=== PATIENT | female | born 1940 | race Caucasian/White ===

== ENCOUNTER 2021-12-23 09:45 | Outpatient (RCR) | payer MEDICARE, BC, SELFPAY ==
[2021-10-05 15:58] VITALS: PULSE 69
== END 2021-12-23 14:26 | disposition home or self-care (01) ==
LOC: ANHCPREHAB 09:45
PROVIDERS: PCP Family Medicine; Visit Provider Internal Medicine Cardiovascular Disease
DX: I50.89 Other heart failure (principal); I25.2 Old myocardial infarction
CPT/HCPCS: 93798

== ENCOUNTER 2022-09-02 08:48 | Emergency (ER) | payer MEDICARE, BC, SELFPAY ==
--- NOTE | ~2022-09-02 | XR_ITS ---
EXAMINATION: XR chest 2V DATE: 09/02/2022 09:40 INDICATION: Atrial fibrillation and pacemaker placement TECHNIQUE: frontal view of the chest was obtained. COMPARISON: Chest radiograph dated 01/16/16 FINDINGS: Minimal streaky bibasilar atelectasis. No other airspace opacities, pulmonary edema, pleural effusion or pneumothorax. Cardiomegaly. Single lead cardiac pacemaker with lead tip projecting over the right ventricle extending towards the right ventricular outflow tract. A prior large gas-filled hiatal her stephania is no longer appreciated. Correlate for interval hiatal hernia repair. Mild thoracic kyphosis wit h moderate spondylosis. IMPRESSION: 1. Tip of a single lead cardiac pacemaker extending towards the right ventricular outflow tract. 2. Minimal bibasilar atelectasis. No other acute cardiopulmonary disease. 3. Prior large hiatal hernia no longer appreciated. Correlate for interval hernia repair. Reviewed, dictated and finalized at location [facility]. [facility] PROCESSING SPECIALIST IMPRESSION: 1. Tip of a single lead cardiac pacemaker extending towards the right ventricul ar outflow tract. 2. Minimal bibasilar atelectasis. No other acute cardiopulmonary disease. 3. Prior large hiatal hernia no longer appreciated. Correlate for interval phyllis ia repair.
[2022-09-02 08:58] VITALS: BP 147/82; PULSE 60; RESP 18; TEMP 36.8; O2SAT 100
--- NOTE | 2022-09-02 09:05 | ED.CHESTPAIN ---
HPI - Chest Pain General Chief Complaint: Chest Pain Stated Complaint: chest pain running under breast Time Seen by Provider: 09/02/22 09:30 Mode of arrival: ambulatory Limitations: no limitations History of Present Illness HPI narrative: 81 year old female with history of AFib and pacemaker presents with concern for chest pain. Reports this morning she rolled over to take off her CPAP machine when she felt a midsternal chest pain that was sharp and ?deep?, the pain lasted for about 30 minutes, toward the end of the 30 minutes the pain radiated under the right breast. She denies any shortness of breath, diaphoresis, nausea. She denies current pain. She denies any recent cough, upper respiratory infection range. She denies rash, redness, bruising. She denies any recent injury or fall. She reports pain is not exacerbated with deep breathing or coughing. MD complaint: chest pain Related Data Home Medications Medication Instructions Recorded Confirmed alprazolam 0.5 mg tablet 0.5 mg PO TID 10/05/21 10/05/21 amlodipine 2.5 mg tablet 2.5 mg PO DAILY 10/05/21 10/05/21 apixaban 5 mg tablet (Eliquis) 5 mg PO BID 10/05/21 10/05/21 carvedilol 6.25 mg tablet 6.25 mg PO BID 10/05/21 10/05/21 pantoprazole 40 mg tablet,delayed 40 mg PO QAM 10/05/21 10/05/21 release potassium chloride 20 mEq 20 meq PO DAILY 10/05/21 10/05/21 tablet,extended release(part/cryst) (Klor-Con M) furosemide 20 mg tablet 20 mg PO DIRECTED 09/02/22 09/02/22 hydrochlorothiazide 25 mg tablet 25 mg PO DAILY 09/02/22 09/02/22 Allergies Allergy/AdvReac Type Severity Reaction Status Date / Time codeine Allergy Mild Nausea and Verified 09/02/22 09:16 Vomiting gabapentin Allergy Nausea and Verified 09/02/22 09:16 Vomiting Review of Systems Review of Systems: CONSTITUTIONAL: Denies malaise, chills, sweats, or fever. EYES: Denies visual changes, redness, or discharge. ENT: Denies rhinorrhea, congestion, sinus pain, otalgia or sore throat. CARDIOVASCULAR: Denies current chest pain, palpitations, or edema. RESPIRATORY: Denies cough or dyspnea. GASTROINTESTINAL: Denies abdominal pain, nausea, vomiting SKIN: Denies rash or itching. MUSCULOSKELETAL: Denies back pain, joint pain, or myalgia. NEUROLOGIC: Denies numbness, weakness, or headache. All systems reviewed & are unremarkable except as noted in HPI and below PMFSH Family History Family History (Updated 10/05/21 @ 15:11 by Ayanna Franco RN) Mother Family history of coronary artery disease, Onset Age: 80 Family history of premature coronary heart disease Family history of elevated blood lipids Father Family history of kidney disease, Onset Age: 50 Family history of diabetes mellitus in first degree relative Patient's father is Hypertension Diabetes mellitus Grandparent Family history of lymphoma Sibling Family history of coronary artery disease Family history of elevated blood lipids Family history of premature coronary heart disease Pacemaker Social History Social History Smoking status: Never smoker Alcohol intake: current Comments At time of signature, agree with nursing past medical, surgical, social and family history. There is no relevant family history pertinent to the presenting complaint Exam Narrative: GENERAL: Well-appearing, well-nourished, and in no acute distress. HEAD: Normocephalic, atraumatic. EYES: PERRLA, sclera clear, and EOMI. No nystagmus. ENT: Nares clear, turbinates pink, no rhinorrhea or epistaxis. Mucous membranes moist. NECK: Supple. No lymphadenopathy. No jugular venous distension, thyromegaly, or carotid bruits. Carotids were easily palpable bilaterally. CHEST: No respiratory distress. Clear to auscultation. No bony deformities, no asymmetry. Speaks in full sentences. Mild tenderness with sternal rub HEART: Regular rate and rhythm. No murmur heard. Normal peripheral pulses. ABDOMEN: Soft, nontender, nondist
--- NOTE | 2022-09-02 09:12 | ECG_ITS ---
Measurements Intervals [place] Rate: 60 P: [place]: 0 QRS: 27 QRSD: 144 T: 73 QT: 463 QTc: 463 Interpretive Statements ELECTRONIC VENTRICULAR PACEMAKER BASELINE ARTIFACT- I, II, III, AVR, AVL, AVF, V1 NO FURTHER INTERPRETATION IS POSSIBLE ATYPICAL ECG NO PREVIOUS ECG AVAILABLE FOR COMPARISON Electronically Signed On 09-02-2022 10:24:18 [employer] by Keagan Bray D.O.
== END 2022-09-02 10:07 | disposition left against medical advice (07) ==
PROVIDERS: Emergency Provider Nurse Practitioner; PCP Family Medicine
DX: R07.9 Chest pain, unspecified (principal); I48.91 Unspecified atrial fibrillation; Z95.0 Presence of cardiac pacemaker; I11.0 Hypertensive heart disease with heart failure; I50.9 Heart failure, unspecified; E78.00 Pure hypercholesterolemia, unspecified; G47.30 Sleep apnea, unspecified; M19.90 Unspecified osteoarthritis, unspecified site; F41.9 Anxiety disorder, unspecified
CPT/HCPCS: 71046; 93005; 99213; G0463

== ENCOUNTER 2023-08-30 19:43 | Emergency (ER) | payer MEDICARE, BC, SELFPAY ==
--- NOTE | 2023-08-30 19:48 | ED.GENADULT ---
HPI - General Adult General Chief complaint: Unspecified Stated complaint: Blood Pressure History of Present Illness HPI narrative: 82-year-old female with history of AFib, hypertension, mi presents today with complaint of shortness of breath today. Check blood pressure at home 30 minutes ago and was elevated 180/100. Denies chest pain but does report palpitations. All systems reviewed and negative except as noted above. Related Data Home Medications Medication Instructions Recorded Confirmed alprazolam 0.5 mg tablet 0.5 mg PO TID 10/05/21 08/30/23 amlodipine 2.5 mg tablet 2.5 mg PO DAILY 10/05/21 08/30/23 apixaban 5 mg tablet (Eliquis) 5 mg PO BID 10/05/21 08/30/23 carvedilol 6.25 mg tablet 6.25 mg PO BID 10/05/21 08/30/23 pantoprazole 40 mg tablet,delayed 40 mg PO QAM 10/05/21 08/30/23 release potassium chloride 20 mEq 20 meq PO DAILY 10/05/21 08/30/23 tablet,extended release(part/cryst) (Klor-Con M) furosemide 20 mg tablet 20 mg PO DIRECTED 09/02/22 08/30/23 hydrochlorothiazide 25 mg tablet 25 mg PO DAILY 09/02/22 08/30/23 Allergies Allergy/AdvReac Type Severity Reaction Status Date / Time codeine AdvReac Mild Nausea and Verified 08/30/23 19:59 Vomiting gabapentin AdvReac Mild Nausea and Verified 08/30/23 19:59 Vomiting Review of Systems Review of Systems: CONSTITUTIONAL: Denies fever, chills, or sweats. EYES: Denies visual changes, redness, or discharge. ENT: Denies rhinorrhea, congestion, sore throat, or otalgia. CARDIOVASCULAR: Denies chest pain reports palpitations. Denies edema. RESPIRATORY: Denies cough. Reports dyspnea. GASTROINTESTINAL: Denies abdominal pain, nausea, vomiting, or diarrhea. GENITOURINARY: Denies dysuria or hematuria. SKIN: Denies rash or itching. MUSCULOSKELETAL: Denies back pain, joint pain, or myalgia. NEUROLOGIC: Denies headache, numbness, or weakness. PSYCHIATRIC: Denies anxiety or depression. All other systems reviewed are negative, except as documented in HPI. [facility] Family History Family History (Updated 10/05/21 @ 15:11 by Ayanna Franco RN) Mother Family history of coronary artery disease, Onset Age: 80 Family history of premature coronary heart disease Family history of elevated blood lipids Father Family history of kidney disease, Onset Age: 50 Family history of diabetes mellitus in first degree relative Patient's father is Hypertension Diabetes mellitus Grandparent Family history of lymphoma Sibling Family history of coronary artery disease Family history of elevated blood lipids Family history of premature coronary heart disease Pacemaker Social History Social History Smoking status: Never smoker Alcohol intake: current Comments At time of signature, agree with nursing past medical, surgical, social and family history. There is no relevant family history pertinent to the presenting complaint. Exam Narrative: GENERAL: This is a well-nourished, well-developed patient, in no apparent distress. HEAD: normocephalic, atraumatic. EYES: PERRL. Sclera clear/white. Vision is grossly intact. EARS: External ears normal NOSE: External nose normal NECK: Neck supple, non-tender without lymphadenopathy, masses or thyromegaly. CARDIOVASCULAR: Regular rate and irreugular rhythm without murmurs, gallops, or rubs. RESPIRATORY: Clear to auscultation. Breath sounds equal bilaterally. No wheezes, rales, or rhonchi. SKIN: warm, Dry, intact with no suspicious lesions or rash, good texture and turgor. NEURO: awake, alert, and oriented to person, place and time. There were no obvious focal neurologic abnormalities. EXTREMITIES: bilateral lower leg edema2+nonpitting Course Course Level of Care: Express Care Visit Vital Signs Vital signs: Reviewed, blood pressure elevated. Transfer Transfered to: [facility] Transportation: Other (private car) Transfer rationale: afid, dyspnea, HTN A
--- NOTE | 2023-08-30 19:50 | ECG_ITS ---
Measurements Intervals [place] Rate: 74 P: [place]: 0 QRS: 93 QRSD: 110 T: -2 QT: 378 QTc: 421 Interpretive Statements ATRIAL FIBRILLATION RIGHT AXIS DEVIATION BORDERLINE ST-T WAVE ABNORMALITY- ANT/INF LEADS BASELINE WANDER- I, II, III, AVR, AVL, AVF, V3 ABNORMAL ECG COMPARED TO ECG 09/02/2022 09:19:38 ATRIAL FIBRILLATION NOW PRESENT Electronically Signed On 08-31-2023 10:32:56 [employer]IGARETTE [employer] by Keagan Bray D.O.
[2023-08-30 19:51] VITALS: BP 187/80; PULSE 77; RESP 24; TEMP 37.1; O2SAT 98
[2023-08-30 20:10] VITALS: BP 186/83; RESP 24
[2023-08-30 20:11] VITALS: BP 187/80; PULSE 77; RESP 20; TEMP 37.1; O2SAT 98
== END 2023-08-30 20:10 | disposition short-term general hospital (02) ==
PROVIDERS: Emergency Provider Nurse Practitioner Family; PCP Family Medicine
DX: I10 Essential (primary) hypertension (principal); R06.00 Dyspnea, unspecified; I48.91 Unspecified atrial fibrillation; I11.0 Hypertensive heart disease with heart failure; I50.9 Heart failure, unspecified; E78.00 Pure hypercholesterolemia, unspecified; K21.9 Gastro-esophageal reflux disease without esophagitis; M19.90 Unspecified osteoarthritis, unspecified site; M32.9 Systemic lupus erythematosus, unspecified; M06.9 Rheumatoid arthritis, unspecified; G47.30 Sleep apnea, unspecified; I25.2 Old myocardial infarction; Z95.0 Presence of cardiac pacemaker; F41.9 Anxiety disorder, unspecified; Z79.01 Long term (current) use of anticoagulants
CPT/HCPCS: 93005; 99213; G0463

== ENCOUNTER 2024-09-26 18:15 | Emergency (ER) | payer MEDICARE, BC, SELFPAY ==
--- OUTSIDE RECORDS SUMMARY | 2024-09-26 18:18 | XMS_ITS | Encounter Summary ---
Author Organization [facility] Healthcare Address [address] [place] [address] Care Team Providers Care Hydraulic Chair Assembler Name Role Phone Jeanmarie Bonilla MD Primary Care Provider [phone] Jony AKINS MD, Vlad Pitt Unavailable + [phone] Encounter Details Date Type Department Care Team (Late st Contact Info) Description 04/22/2022 Telephone Research [facility] Oncology [address] [place] [address] Cata Diggs RN Social History Tobacco Use Types Packs/Day Years Used Date Smoking Tobacco: Never Smokeless Tobacco: Never Alcohol Use Standard Drinks/Week Comments No 0 (1 standard drink = 0.6 oz pur e alcohol) Humiliation, Afraid, Rape, and Kick questionnair e Answer Date Recorded Within the last year, have y ou been afraid of your partner or ex-partner? No 09/15/2021 Within the last year, have y ou been humiliated or emotionally abused in other ways by your partner or ex-partner? No Within the last year, have y ou been kicked, hit, slapped, or otherwise physically hurt by your partner or ex-partner? No 09/15/2021 Within the last year, have y ou been raped or forced to have any kind of sexual activity by your partner or ex-partner? No 09/15/2021 Social Connection and Isolat ion Panel [NHANES] Answer Date Recorded In a typical week, how many times do you talk on the phone with family, friends, or neighbors? More than three times a week 01/06/2022 How often do you get togethe r with friends or relatives? Once a week 01/06/2022 How often do you attend chur ch or evangelical services? Never 01/06/2022 Do you belong to any clubs o r organizations such as sabianism groups, unions, fraternal or athletic groups, or school groups? No 01/06/2022 How often do you attend meet ings of the clubs or organizations you belong to? Never 01/06/2022 Are you , , di vorced, , never , or living with a partner? 01/06/2022 AUDIT-C Answer Date Recorded Q1: How often do you have a drink containing alc ohol? Never 01/04/2022 Average Number of Drinks Not on file 022 Frequency of Binge Drinking Not on file 12/07 Overall Financial Resource Strain (CARDIA) Answe r Date Recorded How hard is it for you to pa y for the very basics like food, housing, medical care, and heating? Not very hard 01/06/2022 PHQ-2 Answer Date Recorded PHQ-2 Total Score (If total score is 3 or more points, staff should administer the PHQ-9) 0 03/16/2022 Hunger Vital Sign Answer Date Recorded Within the past 12 months, y ou worried that your food would run out before you got the money to buy more. Never true 01/07/20 22 Within the past 12 months, t he food you bought just didn't last and you didn't have money to get more. Never true 01/06/2022 PRAPARE - Transportation Answer Date Re corded In the past 12 months, has l ack of transportation kept you from medical appointments or from getting medications? No 09/2021 In the past 12 months, has l ack of transportation kept you from meetings, work, or from getting things needed for daily living? No 01/06/2022 Housing Stability Vital Sign Answer Geovanni e Recorded In the last 12 months, was t here a time when you were not able to pay the mortgage or rent on time? No 01/06/2022 In the last 12 months, how many places have you lived? 1 01/06/2022 In the last 12 months, was t here a time when you did not have a steady place to sleep or slept in a longterm (including now)? No 01/06/2022 Comments No Sex and Gender Information Value Date Recorded Sex Assigned at Not on file Legal Sex Female 9:10 AM MERCERIZER Gender Identity Female 05/10/2024 1:38 PM CDT Sexual Orientation Not on file documented as of this encounter Plan of Treatment Not on file documented as of this encounter Visit Diagnoses Not on filedocumented in this encounter Additional Health Concerns Infection Onset Date Last Indicated Resolved Time COVID: Recovered Comment:Added based on recent COVID infection. 01/29/2022 03/02/2022 05/29/2022 3:05 AM C DT COVID: Suspected 08/01/2022 08/01/2022 08/01/2022 4:09 PM MERCERIZER COVID: Suspected 12/09/2022 12/09/2022 12/09/2022 2:54 PM CDT documented as of this encounter Care Teams Hydraulic Chair Assembler Relationship Specialty Start Date End Date Jeanmarie Bonilla MD [address] [place] [address] PCP - General 11/08/16 Vlad Borges III, MD [address] [facility] [address] [place] [address] Consulting Physician Cardiology 01/04/22 documented as of this encounter
--- OUTSIDE RECORDS SUMMARY | 2024-09-26 18:18 | XMS_ITS | Referral Summary ---
Author Organization [facility] [address] [facility] Address [address] [place] [address] Care Team Providers Care Ditcher Name Role Phone Jeanmarie Bonilla MD Primary Care Provider [phone] Jony AKINS MD, Vlad Pitt Unavailable [phone] Allergies Active Allergy Reactions Criticality Noted Date Comments Clonidine Unknown 04/13/2016 Codeine Nausea only,Nausea A nd Vomiting Low 05/02/2017 Reaction: Nausea, Gabapentin Nausea & Vomiting Low 08/30/2023 Galantamine Nausea And Vomiting 04/19/2016 Venom-Wasp Swelling Medium 03/02/2021 Medications Klor-Con M20 20 mEq CR tablet TAKE 1 TABLET DAILY 90 tablet 3 01/11/20 22 Active Additional Information Patient taking differently: 20 mEq 2 times daily, Reported on 12/09/2022 furosemide (LASIX) 20 mg tablet TAKE 1 TABLET BY MOUTH MONDAY AND Monday04/19/20 22 Active EPINEPHrine 0.3 mg/0.3 mL auto-injection syringeIndicat ions:Anaphylax is Inject 0.3 mL (0.3 mg total) into the muscle as instructed as needed for anaphylaxis Call 911 after use. 1 each 1 11/09/19 23 Active budesonide-for moteroL (SYMBICORT) 160-4.5 mcg/actuation inhaler INHALE 2 PUFFS BY MOUTH TWICE DAILY SLOW BREATH INHALE SLOWLY AND DEEPLY 06/13/20 23 Active amLODIPine (NORVASC) 5 mg tablet Take 1 tablet (5 mg total) by mouth daily 90 tablet 4 10/26/[address] (PROTONIX) 40 mg EC tablet Take 1 tablet (40 mg total) by mouth 2 (two) times a day 180 tablet 3 01/26/20 24 Active traMADoL (ULTRAM) 50 mg tablet Take 1 tablet (50 mg total) by mouth every 6 (six) hours as needed for pain for up to 5 days DO NOT TAKE WITH ALPRAZOLAM 20 tablet 02/01/20 24 Active Additional Information Patient not taking.Reported on 05/22/2024 cholecalcifero l (VITAMIN D-3) 2000 unit tablet Active multivit-hearing examiner [id number]-sefk-inpnts tablet Take by mouth Active simethicone (GAS-X) 125 mg capsule Take 180 mg by mouth every 6 (six) hours as needed for flatulence Active famotidine-Ca carb-mag hydrox (PEPCID COMPLETE) 10-800-165 mg chewable tablet Take 1 tablet by mouth daily as needed for heartburn Active carvediloL (COREG) 6.25 mg tablet Take 2 tablets (12.5 mg total) by mouth 2 (two) times a day with meals 05/22/20 24 Active Eliquis 5 mg tablet TAKE 1 TABLET TWICE A DAY 180 tablet 3 08/16/19 25 Active ALPRAZolam (XANAX) 0.5 mg tabletIndicati ons:Generalize d anxiety disorder TAKE 1 TABLET(0.5 MG) BY MOUTH THREE TIMES DAILY NEEDED FOR ANXIETY 90 tablet 09/26/19 25 Active ALPRAZolam (XANAX) 0.5 mg tabletIndicati ons:Generalize d anxiety disorder TAKE 1 TABLET(0.5 MG) BY MOUTH THREE TIMES DAILY NEEDED FOR ANXIETY 90 tablet 08/16/19 25 025 Discontinued Active Problems Problem Noted Date Diagnosed Date Annual physical exam 06/02/2024 History of iron deficiency 06/02/2024 Chronic heart failure with p reserved ejection fraction (CMS/HCC) 06/02/2024 Fatigue 06/02/2024 Need for influenza vaccination 06/02/2024 Hospital discharge follow-up 02/01/2024 Assessment & Plan (02/01/2024 11:31 AM CDT): IPam, RECREATION THERAPY TEACHER have personally reviewed pertinent inpatient and/or ED records, including discharge medications and Cl[employer]esk if applicable. This patient's discharge medication list has been reviewed and reconciled with her outpatient medication list and has also been reviewed with patient and/or caregiver. I have noted any changes. Omental infarction ([facility]) 01/30/2024 Assessment & Plan (02/01/2024 11:37 AM CDT): Benign abdominal exam. Will repeat labs today. Continue to drink fluids. Recommend starting stool softener to get bowels moving. Can use enema p.r.n.. Discussed pain control options and will send in tramadol to take with food and see how she tolerates. Reviewed red flags. Will continue to monitor. Rheumatoid arthritis involvi ng multiple sites, unspecified whether rheumatoid factor present 11/14/2023 Assessment & Plan (02/01/2024 11:36 AM CDT): Following with Rheumatology. She did start Plaquenil this year. Will continue to follow. Assessment & Plan (11/14/2023 11:24 AM CDT): Seeing rheumatology and started on hydroxychloroquine. WIll continue to folwo response. Paroxysmal A-fib ([facility]) 11/14/2023 Overview (11/14/2023): Stable on DOAC and will montior response. NO change and continue on eliquis. Chest pain 08/31/2023 Atrial fibrillation ([facility]) 08/31/2023 Assessment & Plan (02/01/2024 11:35 AM CDT): Compliant with Eliquis. Rate controlled. Follows with cardiology and EP. Will check BNP today. Way tomorrow. If weight not improved recommend touching base with beater lead. She is agreeable with plan states understanding. Acute dyspnea 08/31/2023 Thyroid disorder screening 08/31/2023 Assessment & Plan (08/31/2023 12:47 PM FREIGHT FORWARDER): Lab Results Component Value Date TSH 2.43 08/22/2022 TSH 5.22 (H) 01/04/2022 TSH 2.18 10/20/2021 Itching 08/31/2023 Assessment & Plan (08/31/2023 12:59 PM FREIGHT FORWARDER): Reports itching of palms of hands and soles of feet after completing prednisone last month. Will treat symptomatically with hydroxyzine and continue to monitor. 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 Consider Hearing aids Cancel out ringing sound at night with white noise Encounter for annual wellness exam in Medicare p atient 05/23/2022 Assessment & Plan (05/31/2022 4:16 PM CDT): Preventive exam; reviewed recommended preventive screenings and vaccinations. Pneumococcal and influenza vaccine given today. Pain in left lower leg 01/12/2022 Assessment & Plan (01/12/2022 10:23 PM CDT): Reviewed neg venous doppler in [facility]. Discussed otc muscle rubs, lidocaine patches. Will contact if no improvement. BMI 28.0-28.9,adult 01/11/2022 Assessment & Plan (05/23/2022 12:55 PM CDT): Discussed healthy diet and importance of regular physical activity. Assessment & Plan (01/12/2022 10:03 PM CDT): Discussed healthy diet and importance of regular physical activity. Hypertensive urgency 01/04/2022 Assessment & Plan (01/11/2022 11:46 AM CDT): Reviewed [facility] notes/recent admission. Brought in BP log (see scanned media). BP much improved. Reviewed medications. Has f/u appt w/Dr Borges in 1 mo (soonest she could schedule) but also on waiting/cancel list for sooner appt. Feeling better. Reviewed red flags. Assessment & Plan (01/04/2022 10:28 AM CDT): Blood pressure significantly elevated in the emergency room with systolic blood pressure greater than 200. Given IV labetalol with improvement. Blood pressure now reviewed with systolic 130s to 150s. Heart rate well controlled. Recent adjustment of medication with patient on amlodipine and HCTZ at home with carvedilol stopped. Will hold off on restarting medication until evaluated by Cardiology. Right sided abdominal pain 01/04/2022 Assessment & Plan (01/04/2022 1:27 PM CDT): CT abdomen/pelvis in the emergency room with no acute findings. Patient has had ongoing issues since hiatal hernia repair in April 2021. Will be seeing new GI physician on January 20, 2022. In the meantime, will continue Protonix. Continue to monitor. Cardiology has now ordered echocardiogram. Edema of left lower extremity 01/04/2022 Assessment & Plan (01/04/2022 10:31 AM CDT): Patient with some cramping in the left lower extremity in addition to edema. Will check venous Dopplers of the lower extremities. Doubt DVT given patient has been taking her Eliquis. NSTEMI (non-ST elevated myocardial infarction) ( [facility]) 09/13/2021 Anaphylactic reaction to wasp sting 03/03/2021 Assessment & Plan (03/03/2021 6:34 AM CDT): Much improved this morning. Still faintly erythematous very mild swelling. Will transition Solu-Medrol to patient's prednisone. Low suspicion for secondary bacterial infection, will discontinue antibiotics. Paresthesias 03/03/2021 Assessment & Plan (03/03/2021 6:35 AM CDT): Of the right side of the face down to the neck. No focal weakness, slurred speech or confusion. Resolved currently. Possible side effect from Benadryl. Patient advised to notify us if she has similar symptoms again. JUAN (obstructive sleep apnea) 03/03/2021 Assessment & Plan (01/04/2022 10:32 AM CDT): Does use BiPAP at home with 2 L oxygen bleed in. Plan to use here if remains overnight. Patient to have sleep study on 01/06/2022 as an outpatient. Assessment & Plan (03/03/2021 6:36 AM CDT): If patient states this evening, family can bring in home BiPAP in patient can resume. Encounter for removal of sutures - Right 020 Other depressive disorder 11/25/2019 Peripheral autonomic neuropathy 11/25/2019 Herpes zoster without complication 01/31/2019 Assessment & Plan (01/31/2019 11:44 AM CDT): Valtrex 1g three times daily for 7 days. Reviewed medication side effects & scheduling. To call with update if pain remains; discussed different neuropathic medications if antiviral does not help ease pain. Reviewed secondary skin infections; aware to not scratch vesicles. Shingles is less contagious than chicken pox. Once your rash is crusted; you are no longer contagious. Shingles cannot be passed from one person to another. The virus, however, can be passed from a person with active shingles to a person who has not had the chicken pox virus. The virus is spread through direct contact with the fluid from the blisters. You are not infectious before the blisters appear. Keep the rash covered and wash your hands. Please avoid contact with women who have never had chicken pox, premature infants, immunocompromised people, people with HIV/AIDS or people undergoing chemotherapy. Refused pneumococcal vaccination 10/05/2018 Pacemaker 06/20/2018 Overview (11/25/2019): Overview: Implant [facility] PPM 1272 SN: [id number] on 06/20/[address] Jignesh Lainez [employer] RV Lead 1200M/58 SN: [id number] on 06/20/[address] Jignesh Lainez Assessment & Plan (01/04/2022 10:30 AM CDT): Patient with interrogation 1 week ago and no findings but was found to have low pulse while in cardiac rehab and carvedilol discontinued. Currently pacemaker appears to be working well. Await Cardiology evaluation. 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 No syncope/near-syncope. Assessment & Plan (08/31/2023 12:49 PM FREIGHT FORWARDER): Stable. Patient denies any palpitations, awareness of heartbeat or dizziness/syncope. Assessment & Plan (05/23/2022 9:56 AM CDT): Following with Dr. Manzanares. S/p pacemaker. Assessment & Plan (01/04/2022 10:30 AM CDT): Now status post pacemaker placement as noted above. Will continue to monitor. Supraventricular tachycardia determined by electrocardiography 04/07/2015 Overview (11/11/2016): Supraventricular tachycardia by ECG Arthralgia 12/21/2013 Overview (11/11/2016): Joint pain Gastroesophageal reflux disease 12/21/2013 Overview (11/11/2016): GERD (gastroesophageal reflux disease) Assessment & Plan (11/14/2023 11:23 AM CDT): Stable on pantoprazole and will follow response. NO change at the present time. NO dsyphagia, no blood in the stools, no black/tarry stools. Assessment & Plan (01/04/2022 10:30 AM CDT): Longstanding ongoing issues. Will continue PPI as noted above. Anticipate increasing PPI to b.i.d. once able to eat. Will need to follow-up with GI as an outpatient. Assessment & Plan (07/20/2021 3:24 PM FREIGHT FORWARDER): Trial protonix 40 every morning and if no better consider egd. Assessment & Plan (03/03/2021 6:34 AM CDT): Continue PPI Assessment & Plan (11/26/2019 9:07 AM CDT): Discussed small frequent meals/snack. Discussed gas-ex prn. Reviewed provocative foods to avoid: caffeine, citrus, ETOH, carbonated drinks, fried/fatty/fast foods & rich/creamy sauces. Reviewed diet/exercise recommendations: 20-30min physicaly activity daily at minimum. Reviewed med Ses & scheduling. Weight loss will help improve GERD sxs. Keep HOB elevated 30 degrees & not eat 2-3 hrs before bedtime. Essential tremor 12/21/2013 Overview (11/11/2016): Essential tremor Generalized anxiety disorder 06/05/2008 Assessment & Plan (05/23/2022 12:54 PM CDT): Continues p.r.n. use of alprazolam. Medication refilled today, reviewed side effects and scheduling. Assessment & Plan (01/04/2022 10:32 AM CDT): Most likely contributing to her issues with elevated blood pressure as well as acid reflux. Does use alprazolam as needed at home and plan to resume once no longer NPO. Assessment & Plan (03/03/2021 6:35 AM CDT): Continue p.r.n. Xanax Assessment & Plan (11/26/2019 9:08 AM CDT): Xanax refilled 11/18/19. Reports good control of anxiety w/current regimen. No changes to be made at this time. Reviewed med Ses & scheduling. Reviewed red flags. Hypertension, essential 06/05/2008 Assessment & Plan (11/14/2023 11:24 AM CDT): Stable on amlodipine and will montior reposnse. NO change and will continue to ofllwo repsonse. Assessment & Plan (08/31/2023 12:50 PM FREIGHT FORWARDER): Blood pressure today is well controlled, 138/76. Patient is not experiencing any chest pain, nausea or shortness a breath at this time. Reviewed lab work completed in the emergency department, EKG findings and chest x-ray findings. No changes in weight or lower extremity edema. Patient is compliant with current medication regimen. Given no significant findings, normal exam and normal blood pressure no changes were made today. Encouraged patient to follow-up with cardiology and would like for her to continue checking blood pressure at home. Instructed to take blood pressure at least 3 hours after medication. She will notify office with any elevated readings. Reviewed return ER precautions with patient and family Assessment & Plan (05/23/2022 12:55 PM CDT): Condition is stable Discussed/ordered labs, encouraged healthy, low carbohydrate lifestyle a and furosemide nd at least 150min/week of exercise, continue on amlodipine, carvedilol and furosemide. Patient is following with Cardiology. Assessment & Plan (03/03/2021 6:35 AM CDT): Home medications have been resumed with hold parameters. Will continue to monitor. Assessment & Plan (11/26/2019 9:06 AM CDT): Checks BP intermittently. The blood pressure is under good control. Ideally it should be under 130/80. Continue medications without adjustment. Continue efforts to eat well (4-5 fruits and veggies) daily and exercise for about 30 min nearly every day. Watch salt intake, keeping to less than 2000mg per day. Limit alcohol. Include strategies to cope with stress. HTN (hypertension), benign 06/05/2008 Hyponatremia Assessment & Plan (01/04/2022 1:26 PM CDT): Sodium 130. Most likely result of diuretic use. Will monitor. Resolved Problems Problem Noted Date Diagnosed Date Resolved Date BMI 30.0-30.9,adult 11/26/2019 01/12/20 22 Assessment & Plan (11/26/2019 9:05 AM CDT): Reviewed need to lose weight, reviewed health benefits. Reviewed recommendations for daily intake & activity 20-30 minutes/day. Discussed healthy diet and importance of regular physical activity. Abdominal pain, right lower quadrant 11/25/2019 11/26/2019 Diaphragmatic hernia 11/25/2019 020 BMI 31.0-31.9,adult 02/03/2019 11/26/19 20 Assessment & Plan (02/03/2019 5:20 PM CDT): Reviewed need to lose weight, reviewed health benefits. Reviewed recommendations for daily intake & activity 20-30 minutes/day. Discussed healthy diet and importance of regular physical activity. Low back pain radiating to both legs 05/24/2018 11/26/2019 Eye pain, bilateral 05/14/2017 11/26/19 20 Encounter for loop recorder check 04/27/2016 11/26/2019 Overview (02/05/2018): Overview: [employer] - Confirm [id number] SN: [id number] - Implanted 04/27/[address] Jignesh Lainez Overview: [employer] - Confirm [id number] SN: [id number] - Implanted 04/27/[address] Jignesh Lainez Paroxysmal atrial fibrillation ([facility]) 04/13/2016 11/14/2023 Assessment & Plan (08/31/2023 12:48 PM FREIGHT FORWARDER): Rate controlled continue carvedilol 6.25 mg b.i.d. and Eliquis. Following with EP and Cardiology Assessment & Plan (05/23/2022 9:58 AM CDT): Dr. Borges cardiology at [facility]. Continues eliquis 5 mg twice daily. Assessment & Plan (01/04/2022 10:31 AM CDT): Has pacemaker in place. On review of telemetry on 01/04/2022 heart rate currently in the 50s to 60s. Normally on Eliquis at home and anticipate resuming once evaluated by Cardiology. Assessment & Plan (03/03/2021 6:35 AM CDT): Continue metoprolol with hold parameters. Continue Eliquis. Closed fracture of one rib 01/25/2016 0 11/26/2019 Overview (11/11/2016): Closed fracture of one rib of right side, initial encounter Lightheadedness 11/30/2015 11/26/2019 Overview (11/11/2016): Light-headed feeling Dyspnea on exertion 08/03/2015 11/26/19 20 Overview (11/11/2016): Exertional dyspnea Disuse syndrome 08/03/2015 11/26/2019 Overview (11/11/2016): Physical deconditioning Shortness of breath 04/07/2015 11/26/19 20 Overview (11/11/2016): Shortness of breath Abnormal cardiovascular stress test 04/07/2015 11/26/2019 Overview (11/11/2016): Abnormal stress test Fatigue 12/21/2013 11/26/2019 Overview (11/11/2016): Fatigue Hypertension 12/21/2013 11/26/2019 Overview (11/11/2016): Hypertension Anxiety 12/21/2013 11/26/2019 Overview (11/11/2016): Anxiety Immunizations Immunization Administration Dates Next Due Influenza, Quadrivalent, Hig h Dose, Preservative Free, Intrr 05/12/2023,05/23/2022,05/17/2021,04/29 Influenza, Quadrivalent, Spl it, Preservative Free, Intramuscular 05/24/2019,07/04/2018,05/09/2017,08/23 Influenza, Split 05/23/2013,04/17/2012 Influenza, Trivalent, High D ose, Split, Preservative Free, Intramuscular 05/22/2024,06/16/2014 Influenza, Trivalent, IM (MDV) 06/19/2015,2006,05/21/2007 Moderna SARS-CoV-2 Monovalen t Vaccination (12+ YRS) 06/12/2021,10/20/2020,10/15/2020 Pneumococcal Conjugate PCV 13 01/11/2022 (Deferred: Patient Refused),01/27/2021(Deferred: Patient Refused),08/07/2019(Deferred: Patient Refused) Pneumococcal Conjugate Pcv20 05/23/2022 Pneumococcal Polysaccharide PPV23 2021(Deferred: Patient Refused),01/27/2021(Deferred: Patient Refused),11/27/2020(Deferred: Patient Refused) Social History Tobacco Use Types Packs/Day Years Used Date Smoking Tobacco: Never Smokeless Tobacco: Never Tobacco Cessation:Counseling Given: Not Answered Alcohol Use Standard Drinks/Week Comments No 0 [...] often do you attend chur ch or yazidism services? Never 01/06/2022 Do you belong to any clubs o r organizations such as religious groups, unions, fraternal or athletic groups, or school groups? No 01/06/2022 How often do you attend meet ings of the clubs or organizations you belong to? Never 01/06/2022 Are you , , di vorced, , never , or living with a partner? 01/06/2022 AUDIT-C Answer Date Recorded Q1: How often do you have a drink containing alc ohol? Never 08/22/2022 Average Number of Drinks Not on file 023 Frequency of Binge Drinking Not on file 08/07 Overall Financial Resource Strain (CARDIA) Answe r Date Recorded How hard is it for you to pa y for the very basics like food, housing, medical care, and heating? Not very hard 01/06/2022 PHQ-2 Answer Date Recorded PHQ-2 Total Score (If total score is 3 or more points, staff should administer the PHQ-9) 0 05/22/2024 Hunger Vital Sign Answer Date Recorded Within [...] place to sleep or slept in a residential (including now)? No 01/06/2022 Personal Safety Answer Date Recorded Have you ever been in or are you currently in a harmful physical or emotional relationship or is someone making you feel afraid or unsafe? Denies 01/30/2024 Comments No Sex and Gender Information Value Date Recorded Sex Assigned at Not on file Legal Sex Female 9:10 AM FREIGHT FORWARDER Gender Identity Female 05/10/2024 1:38 PM CDT Sexual Orientation Not on file Last Filed Vital Signs Vital Sign Reading Time Taken Comments Blood Pressure 122/80 05/22/2024 9:27 AM CDT Pulse 60 05/22/2024 9:27 AM CDT Temperature 36.7 C (98.1 F) 02/23/2024 10:40 AM CDT Respiratory Rate 16 05/22/2024 9:27 AM CDT Oxygen Saturation 98% 05/22/2024 9:27 AM CDT Inhaled Oxygen Concentration - - Weight 81.6 kg (179 lb 12.8 oz) 05/22/2024 9:27 AM CDT Height 165.1 cm (5' 5 ) 05/22/2024 9:27 AM CDT Body Mass Index 29.92 05/22/2024 9:27 AM CDT Plan of Treatment Not on file Medical Devices Implanted Type Area Stores Assistant Device Identifier Shelf Expiration Date Model / Serial / Lot Pacemaker Pacemaker Left: Chest [employer] [id number] Angio-Seal Evolution 6fr .035in Guidewire Bypass Tube Suture - [id number] Implanted:Qty : 1 on 09/14/2021 by Wong Tony MD at [facility] [employer] 03/06/2022 [id number] / / [id number] Procedures Procedure Name Priority Date/Time Associated Diagnosis Comments DEXA AXIAL SKELETON BONE DENSITY 1 OR MORE SITES Schedule Routine, Read Routine (OP Routine) 02/18/2021 10:24 AM CDT Encounter for osteoporosis screening in asymptomatic postmenopausal patient from Last 3 Months or Most Recently Relevant to Health Maintenance Results * Dexa Axial Skeleton Bone Density 1 or 2 Site (02/18/2021 10:24 AM CDT) Anatomical Region Laterality Modality Body N/A Other 02/18/2021 12:5 8 PM CDT Narrative 02/18/2021 12:59 PM CDT EXAM DESCRIPTION: DEXA AXIAL SKELETON BONE DENSITY 1 OR MORE SITES REASON FOR STUDY: Post-menopausal female, screening for osteoporosis. Stores Assistant/Model: [employer] ([id number]/N [id number]) CLINICAL INFORMATION: Current height: 65 inches Maximum height: 65 inches Weight: 185.6 pounds Risk factors: Rheumatoid arthritis COMPARISON: None available. FINDINGS: AP LUMBAR SPINE L1-L4: Total BMD is 1.080 g/cm2 T-score is 0.3 LEFT HIP: Total BMD is 0.692 g/cm2 T-score is -2.0 Femoral neck BMD is 0.701 g/cm2 T-score is -1.3 IMPRESSION: 1. Low bone mass by WHO criteria. 2. The WHO fracture risk assessment tool (FRAX) indicates that the 10 year risk for a major osteoporotic fracture is 16% and the 10 year risk for a hip fracture is 3.9%. The FRAX tool has not been validated in patients currently or previously treated with pharmacotherapy for osteoporosis. In such patients, clinical judgement must be exercised in interpreting FRAX scores as the fracture risk may be overestimated. REFERENCE: Bone mineral density: Normal (T-score above or = -1.0) Low bone mass (T-score between -1.0 and -2.5) replaces the previously used term osteopenia Osteoporosis (T-score = or below -2.5) Medical evaluation for secondary causes of low bone mineral density may be appropriate. FRAX is a World Health Organization validated fracture risk assessment tool that calculates a person's 10 year probability of a major osteoporosis related fracture and hip fracture. According to the National Osteoporosis Foundation guidelines, postmenopausal women and men age 50 or older with low bone mass and a 10 year probability of a major osteoporosis related fracture = or greater than 20% or a 10 year probability of a hip fracture = or greater than 3% should be considered for treatment. For further information, including treatment recommendations, please refer to the 2013 ISCD Official Positions (http://www.iscd.org) and the NOF's Clinician's Guide to Prevention and Treatment of Osteoporosis (http://www.nof.org/professionals/clinical-guidelines) THIS IS AN ELECTRONICALLY VERIFIED FINAL REPORT 02/18/2021 12:59 PM - Electronically signed by Natalio Bowles M.D. AB: AB Report ID: [id number] Reading Location: [id number] Procedure Note Natalio Bowles MD - 02/18/2021 EXAM DESCRIPTION: DEXA AXIAL SKELETON BONE DENSITY 1 OR MORE SITES REASON FOR STUDY: Post-menopausal female, screening for osteoporosis. Stores Assistant/Model: [employer] SL (S/N [id number]) CLINICAL INFORMATION: Current height: 65 inches Maximum height: 65 inches Weight: 185.6 pounds Risk factors: Rheumatoid arthritis COMPARISON: None available. FINDINGS: AP LUMBAR SPINE L1-L4: Total BMD is 1.080 g/cm2 T-score is 0.3 LEFT HIP: Total BMD is 0.692 g/cm2 T-score is -2.0 Femoral neck BMD is 0.701 g/cm2 T-score is -1.3 IMPRESSION: 1. Low bone mass by WHO criteria. 2. The WHO fracture risk assessment tool (FRAX) indicates that the 10 year risk for a major osteoporotic fracture is 16% and the 10 year risk for ahip fracture is 3.9%. The FRAX tool has not been validated in patients currently or previously treated with pharmacotherapy for osteoporosis. In such patients, clinical judgement must be exercised in interpreting FRAX scores as the fracturerisk may be overestimated. REFERENCE: Bone mineral density: Normal (T-score above or = -1.0) Low bone mass (T-score between -1.0 and -2.5) replaces thepreviously used term osteopenia Osteoporosis (T-score = or below -2.5) Medical evaluation for secondary causes of low bone mineral density may be appropriate. FRAX is a World Health Organization validated fracture risk assessmenttool that calculates a person's 10 year probability of a major osteoporosisrelated fracture and hip fracture. According to the National OsteoporosisFoundation guidelines, postmenopausal women and men age 50 or older with low bonemass and a 10 year probability of a major osteoporosis related fracture = or greater than 20% or a 10 year probability of a hip fracture = or greaterthan 3% should be considered for treatment. For further information, including treatment recommendations, please referto the 2013 ISCD Official Positions (http://www.iscd.org) and the NOF's Clinician's Guide to Prevention and Treatment of Osteoporosis (http://www.nof.org/professionals/clinical-guidelines) THIS IS AN ELECTRONICALLY VERIFIED FINAL REPORT 02/18/2021 12:59 PM - Electronically signed by Natalio Bowles M.D. AB: Report ID: [id number] Reading Location: [place] [address] Pam Child NP IMG DXA PROCEDURES Final R esult from Last 3 Months or Most Recently Relevant to [place] [address] MEDICARE FORMERLY [facility] MEDICARE [facility] TRADITIONAL Member Subscriber Plan / Payer ( fective 2012-Present) Name:Azul Butler Relation to Subscriber:Self Name:ASHLEYMK CARLOTHY Federico Payer ID:[id number] ([facility]) Type:iRewind Address: [address] TRADITIONAL [facility] MEDICARE [place] TRADITIONAL [place] Advance Directives For more information, please contact: [phone] * LIMITED - No CPR (Latest Code Status on File) Date Activated Date Inactivated Comments 01/04/2022 10:22 AM 01/04/2022 11:51 PM Question Answer Comments Provide aggressive medical m anagement before a full cardiopulmonary arrest occurs. Use antibiotics, IV Fluids, and medical treatment unless specifically selected below: No intubationNo vasopressorsNo non-invasive ventilationNo cardioversion * Full Code Date Activated Date Inactivated Comments 09/13/2021 2:48 AM 09/14/2021 11:16 PM * Full Code Date Activated Date Inactivated Comments 03/02/2021 11:37 PM 03/03/2021 9:07 PM Care Teams Ditcher Relationship Specialty Start Date End Date Jeanmarie Bonilla MD [address] [place] [address] PCP - General 11/08/16 Vlad Borges III, MD [address] [facility] [address] [place] [address] Consulting Physician Cardiology 01/04/22
--- OUTSIDE RECORDS SUMMARY | 2024-09-26 18:18 | XMS_ITS | Encounter Summary ---
Author Organization [facility] Address [address] [facility] [place] [address] Care Team Providers Care Mh Teacher Name Role Phone Jeanmarie Bonilla MD Primary Care Provider [phone] Jignesh Lainez MD Unavailable Misael Aponte MD Unavailable Unavailable Encounter Details Date Type Department Care Team (Late st Contact Info) Description 03/24/2020 Lab Requisition [facility] Care DermPath Lab [address] [facility] [place] [id number] Charlie Mariano MD [address] [place] [address] Social History Tobacco Use Types Packs/Day Years Used Date Smoking Tobacco: Unknown Alcohol Use Standard Drinks/Week Comments Not Asked 0 (1 standard drink = 0.6 oz pur e alcohol) Sex and Gender Information Value Date Recorded Sex Assigned at Not on file Gender Identity Not on file Sexual Orientation Not on file documented as of this encounter Plan of Treatment Not on file documented as of this encounter Procedures Procedure Name Priority Date/Time Associated Diagnosis Comments DERMATOPATHOLOGY Routine 03/23/2020 12:0 0 AM CDT documented in this encounter Results * DERMATOPATHOLOGY (03/23/2020 12:00 AM CDT) Case Report Dermatopathology Report Case: [id number] Authorizing Provider: Charlie Mariano MD Collected: 03/23/2020 12:00 AM Ordering Location: [facility] D[facility] Lab Received: 03/24/2020 12:36 PM Pathologist: Radha Arzola MD Specimen: Skin, right cheek 0 2:04 PM CDT DERMATOPATHOLOGY LABORATORY Final Diagnosis Specimen A. SKIN, right cheek: BASAL CELL CARCINOMA, NODULAR TYPE (C44.319) 0 2:04 PM CDT DERMATOPATHOLOGY LABORATORY Clinical History R/O BCC. 0 2:04 PM CDT DERMATOPATHOLOGY LABORATORY Gross Description Specimen A: Received is one formalin filled container labeled with the patient's name and designated right cheek. The specimen consists of a shave biopsy measuring [id number]. Jar 0. 0 2:04 PM CDT DERMATOPATHOLOGY LABORATORY Microscopic Description Specimen A. SKIN, right cheek: Within the dermis there are aggregates of basaloid cells with a high nuclear to cytoplasmic ratio and peripheral palisading. 0 2:04 PM CDT DERMATOPATHOLOGY LABORATORY Disclaimer An external and internal positive and negative controls are appropriate for the histochemical, immunohistochemical and immunofluorescence stain(s) in this case (if any), except where stated explicitly. The performance characteristics of the stain(s) cited in this report were developed and its performance characteristic determined by the Dermatopathology Laboratory at [facility], directed by Dr. Jennifer Obrien. These tests need not be, and therefore are not, approved by the [place] Food and Drug Administration. The tests are used for clinical purposes. Billing Codes Specimen Charges Stain Charges 32577 1 0 2:04 PM CDT DERMATOPATHOLOGY LABORATORY Embedded Images 0 2:04 PM CDT DERMATOPATHOLOGY LABORATORY Pathology/Cytolog y TISSUE SPECIMEN FROM SKIN / Unknown 03/23/2020 03/24/2020 12:36 PM CDT Charlie Mariano MD LAB - PATHOLOGY/CYTO LOGY ORDERABLES DERMATOPATHOLOGY LABORATORY [facility] - Department of Dermatology Cover Remover Center/[address] [phone] documented in this encounter Visit Diagnoses Not on filedocumented in this encounter Care Teams Mh Teacher Relationship Specialty Start Date End Date Jeanmarie Bonilla MD [address] [place] [address] PCP - General Internal Medicine 03/18/16 Jignesh Lainez MD [address] [place] [address] Cardiovascular Disease 04/19/16 Misael Aponte MD [address] [place] [address] [place] [address] Cardiology 04/19/16 documented as of this encounter
--- OUTSIDE RECORDS SUMMARY | 2024-09-26 18:18 | XMS_ITS | Clinical Summary ---
Author Organization [facility] Address [address] [place] [address] Phone Care Team Providers Care Ram Press Operator Name Role Phone Jeanmarie Bonilla MD Primary Care Provider [phone] Allergies Active Allergy Reactions Criticality Noted Date Comments Codeine Nausea 12/31/2015 Galantamine Unknown 04/19/2016 Medications ALPRAZolam (XANAX) 0.5 MG Tablet Take 0.5 mg by mouth 3 times daily as needed (takes bid usually). Active hydrochlorothiaz shraddha 12.5 MG Tablet Take 12.5 mg by mouth daily. Active apixaban (ELIQUIS) 5 MG Tablet Take 5 mg by mouth 2 times daily. Active Omeprazole 20 MG Tablet Delayed Response Take 1 Tab by mouth daily. Active amLODIPine (NORVASC) 5 MG Tablet Take 5 mg by mouth 2 times daily. Active benazepril (LOTENSIN) 20 MG Tablet Take by mouth. 04/17/2017 Active metoprolol tartrate (LOPRESSOR) 25 MG Tablet TAKE 1 TABLET(25 MG) BY MOUTH TWICE DAILY 09/20/2017 Active Multiple Vitamins-Mineral s (MULTIVITAMIN PO) Take by mouth. Active Cholecalciferol (VITAMIN D PO) Take by mouth. Active Montague-3 Fatty Acids (FISH OIL PO) Take by mouth. Active Active Problems Problem Noted Date Diagnosed Date Hypermobile joint syndrome of left foot 10/03/19 18 Hallux valgus, left 10/03/2017 Hammer toe of left foot 10/03/2017 Family History Medical History Relation Name Comments Pacemaker Brother Diabetes Father Hypertension Maternal Grandmother Stroke Maternal Grandmother Arrhythmia Mother Cancer Mother Heart Attack Mother Heart Disease Mother Hypertension Mother Osteoarthritis Mother Hypertension Sister Relation Name Status Comments Brother Alive Father Maternal Grandfather Maternal Grandmother Mother Sister Alive Social History Tobacco Use Types Packs/Day Years Used Date Smoking Tobacco: Never Smokeless Tobacco: Never Alcohol Use Standard Drinks/Week Comments No 0 (1 standard drink = 0.6 oz pur e alcohol) Comments Unknown Sex and Gender Information Value Date Recorded Sex Assigned at Not on file Legal Sex Female 9:35 PM CDT Gender Identity Not on file Sexual Orientation Not on file Last Filed Vital Signs Vital Sign Reading Time Taken Comments Blood Pressure 126/70 10/03/2017 3:46 PM SOCIAL MEDIA INTERN Pulse 69 10/03/2017 3:46 PM SOCIAL MEDIA INTERN Temperature 36.7 C (98.1 F) 10/03/2017 3:46 PM SOCIAL MEDIA INTERN Respiratory Rate 16 10/03/2017 3:46 PM SOCIAL MEDIA INTERN Oxygen Saturation 92% 10/03/2017 3:46 PM SOCIAL MEDIA INTERN Inhaled Oxygen Concentration - - Weight 86.2 kg (190 lb) 10/03/2017 3:46 PM SOCIAL MEDIA INTERN Height 166.4 cm (5' 5.5 ) 10/03/2017 3:46 PM SOCIAL MEDIA INTERN Body Mass Index 31.14 10/03/2017 3:46 PM SOCIAL MEDIA INTERN Plan of Treatment Health Maintenance Due Date Last Done Comments DEXA Bone Density 1940 Hepatitis C Virus (HCV) Screening 1940 TdaP Immunization 1940 Pneumococcal Immunization (5 0+ years) (1 of 1 - PCV) 12/28/1989 Zoster Immunization (1 of 2) 12/28/1989 Respiratory Syncytial Virus (RSV) Immunization (Adult) (1 - 1-dose 75+ series) 12/28/2014 Influenza Immunization (#1) 2024 SARS-COV-2 Immunization ( - 2023- season) 2024 Hepatitis B Immunization Aged Out No longer eligible based on patient's age to complete this topic Meningococcal Immunization (ACWY) Aged Out No longer eligible based on patient's age to complete this topic Rotavirus Immunization Aged Out No lo nger eligible based on patient's age to complete this topic Medical Devices Implanted Type Area Electro Mechanical Solar Technician Device Identifier Shelf Expiration Date Model / Serial / Lot Angioseal Vip 6fr - [id number] Implanted:Qty: 1 on 01/05/2016 by Misael Aponte MD at [facility] IMPLANT Right: Groin [employer] / ATRIAL FIB 09/06/2016 [id number] / / [id number] Insurance Member Subscriber Plan / Payer (Ef fective 2004-Present) Name:AshleyAzul love Member ID:[id number] Relation to Subscriber:Self Name:Azul Butler Subscriber ID:[id number] Payer ID:[id number] Group ID:Not on file Type:Not on file Address: [facility] [address] [facility] [employer] [facility] [place] [address] [facility] Care Teams Ram Press Operator Relationship Specialty Start Date End Date Jeanmarie Bonilla [place] [address] PCP - General Internal Medicine 01/01/16
--- OUTSIDE RECORDS SUMMARY | 2024-09-26 18:18 | XMS_ITS | Referral Summary ---
Author Organization [facility] [employer] Address [address] [place] [address] Care Team Providers Care Disability Specialist Name Role Phone Jeanmarie Bonilla MD Primary Care Provider [phone] Jignesh Lainez MD Unavailable [phone] Misael Aponte MD Unavailable Unavailable Source Comments [facility],non-owned Affiliates and Associated Physician Practices is amultiple site organization consisting of ambulatory clinics and hospital sitesin [place], [place], [place] and [place]. This disclosure is being madepursuant to the Care Everywhere program and may not contain all information available regarding this patient. Last updated 18.[facility] Allergies Active Allergy Reactions Criticality Noted Date Comments Clonidine 04/13/2016 Codeine Nausea and/or Vomiting 04/13/2016 Galantamine Nausea and/or Vomiting 04/19/2016 Medications * Be aware that medications may not be up to date on this document. Alwaysverify current medications with the patient. Medication Sig Dispensed Refills Start Date End Date Status OMEPRAZOLE PO Take 20 mg by mouth once daily as needed Active ALPRAZOLAM PO Take 0.5 mg by mouth once daily as needed Active ELIQUIS 5 MG tablet TAKE 1 TABLET TWICE A DAY 180 Tab 01/26/2017 Active amLODIPine (NORVASC) 5 MG tabletIndications:SSS (sick sinus syndrome) (HCC) Take 5 mg by mouth once daily 01/23/2018 Active metoprolol tartrate (LOPRESSOR) 25 MG tabletIndications:SSS (sick sinus syndrome) (HCC) Take 25 mg by mouth 2 times daily 04/19/2018 Active hydroxychloroquine (PLAQUENIL) 200 MG tablet Take 1 tablet by mouth 2 times daily Active hydroCHLOROthiazide (HYDRODIURIL) 25 MG tablet Take 25 mg by mouth once daily Active potassium chloride ER (KLOR-CON) 20 MEQ tablet Take 20 mEq by mouth once daily Active ibuprofen (MOTRIN) 800 MG tablet Take 800 mg by mouth 2 times daily as needed Active Active Problems Patient Care Coordination No te Formatting of this note migh t be different from the original. EP- Dr. Jignesh Lainez Commercial Stripper - Dr. Misael Aponte Problem Noted Date Diagnosed Date Pacemaker reprogramming/check 09/21/2018 Pacemaker 06/20/2018 Overview (06/20/2018): Implant SJM PPM 1272 SN: [id number] on 06/20/[address] Jignesh Lainez [facility] RV Lead 1200M/58 SN: [id number] on 06/20/[address] Jignesh Lainez Paroxysmal atrial fibrillation 04/13/2016 Palpitations SSS (sick sinus syndrome) Resolved Problems Problem Noted Date Diagnosed Date Resolved Date Dysrhythmia, cardiac 08/18/2016 017 Encounter for loop recorder check 04/27/2016 06/20/2018 Overview (04/27/2016): [facility] - Confirm [id number] SN: [id number] - Implanted 04/27/[address] Jignesh Lainez Social History Tobacco Use Types Packs/Day Years [...] Sign Reading Time Taken Comments Blood Pressure 136/84 09/24/2019 11:44 AM FOREST NURSERY WORKER Pulse 60 09/24/2019 11:44 AM FOREST NURSERY WORKER Temperature 36.5 C (97.7 F) 06/20/2018 8:03 AM FOREST NURSERY WORKER Respiratory Rate 14 06/20/2018 2:00 PM FOREST NURSERY WORKER Oxygen Saturation 94% 06/20/2018 2:00 PM FOREST NURSERY WORKER Inhaled Oxygen Concentration - - Weight 86.3 kg (190 lb 3.2 oz) 09/24/2019 11:44 AM FOREST NURSERY WORKER Height 165.1 cm (5' 5 ) 09/24/2019 11:44 AM FOREST NURSERY WORKER Body Mass Index 31.65 09/24/2019 11:44 AM FOREST NURSERY WORKER Plan of Treatment Not on file Care Teams Disability Specialist Relationship Specialty Start Date End Date [place] [address] PCP - General Internal Medicine 03/18/16 Jignesh Lainez MD [address] [place] [address] [address] [facility] [place] [address] Cardiovascular Disease 04/19/16 Misael Aponte MD [address] [place] [address] [address] [facility] [place] [address] Cardiology 04/19/16
--- OUTSIDE RECORDS SUMMARY | 2024-09-26 18:18 | XMS_ITS | Clinical Summary ---
Author Organization [facility] Address [address] [facility] Attn: [place] [address] Care Team Providers Care Office Supervisor Name Role Phone Non-Staff, Physician Primary Care Provider Unava ilable Allergies Active Allergy Reactions Criticality Noted Date Comments Clonidine Unknown 08/26/2012 Codeine Nausea and Vomiting Low 08/15/2008 Medications PROPRANOLOL HCL (PROPRANOLOL ORAL) A ctive AMLODIPINE BESYLATE (AMLODIPINE ORAL) Ac tive BENAZEPRIL HCL (BENAZEPRIL ORAL) Ac tive POTASSIUM CHLORIDE (KLOR-CON ORAL) Acti ve OMEPRAZOLE ORAL Acti ve ALPRAZOLAM ORAL Acti ve aspirin (LUAN) 81 mg Oral Tab Active MAGNESIUM ORAL Activ e CALCIUM ORAL Active Active Problems Problem Noted Date Diagnosed Date Breast CA Screening 06/05/2008 Overview (02/11/2021): Mammo: 05/13 Screen for colon cancer 06/05/2008 Overview (02/11/2021): Colonoscopy: 2003, Normal HTN (hypertension), benign 06/05/2008 Generalized anxiety disorder 06/05/2008 Benign essential tremor 06/05/2008 Immunizations Immunization Administration Dates Next Due Influenza Seasonal Unspecified Formulation IM Social History Tobacco Use Types Packs/Day Years Used Date Smoking Tobacco: Never Assessed Comments No Sex and Gender Information Value Date Recorded Sex Assigned at Not on file Legal Sex Female 3:19 AM SHIPYARD PAINTER HELPER Gender Identity Not on file Sexual Orientation Not on file Last Filed Vital Signs Vital Sign Reading Time Taken Comments Blood Pressure 138/80 12/22/2009 11:56 AM CDT Pulse - - Temperature - - Respiratory Rate - - Oxygen Saturation - - Inhaled Oxygen Concentration - - Weight 79.8 kg (176 lb) 12/22/2009 11:56 AM CDT Height - - Body Mass Index - - Plan of Treatment Health Maintenance Due Date Last Done Comments DTAP/TDAP/TD VACCINES (1 - Tdap) 12/28/1959 PNEUMOCOCCAL VACCINE 65+ YEA RS (1 of 1 - PCV) 12/28/1989 ZOSTER VACCINE (1 of 2) 12/28/1989 OSTEOPOROSIS SCREENING 12/28/2004 RSV VACCINE (60+ or ) (1 - 1-dose 75+ series) 12/28/2014 INFLUENZA VACCINE (#1) 2024 05/21/2007 Colorectal Cancer Screening Discontinued FIT/FOBT Q 1 year Discontinued 09/15/2000, 07/14/1999 COLORECTAL SCREENING Discontinued FIT-DNA Q 3 years Discontinued Flex Sig/CT Colonography Q 5 years Discontinued Care Teams Office Supervisor Relationship Specialty Start Date End Date Non-Staff, Physician NO ADDRESS ON FILE PCP - General 09/19/07
--- OUTSIDE RECORDS SUMMARY | 2024-09-26 18:18 | XMS_ITS | Encounter Summary ---
Author Organization [email or web address] Address [address] [place] [address] Care Team Providers Care Registered Sales Assistant Name Role Phone Non-Staff, Physician Primary Care Provider Unava ilable Encounter Details Date Type Department Care Team (Late st Contact Info) Description 07/14/1999 Outpatient Historical [facility] Maciej Sandoval Social History Tobacco Use Types Packs/Day Years Used Date Smoking Tobacco: Never Assessed Comments Unknown Sex and Gender Information Value Date Recorded Sex Assigned at Not on file Legal Sex Female 3:19 AM ELECTRONICS SCALE TESTER Gender Identity Not on file Sexual Orientation Not on file documented as of this encounter Plan of Treatment Not on file documented as of this encounter Visit Diagnoses Not on filedocumented in this encounter Care Teams Registered Sales Assistant Relationship Specialty Start Date End Date Non-Staff, Physician NO ADDRESS ON FILE PCP - General 09/19/07 documented as of this encounter
--- OUTSIDE RECORDS SUMMARY | 2024-09-26 18:18 | XMS_ITS | Encounter Summary ---
Author Organization [facility] Address [address] [place] [address] Care Team Providers Care Rail Car Painter/Sandblaster Name Role Phone Non-Staff, Physician Primary Care Provider Unava ilable Encounter Details Date Type Department Care Team (Late st Contact Info) Description 09/15/2000 Outpatient Historical [facility] Maciej Sandoval Social History Tobacco Use Types Packs/Day Years Used Date Smoking Tobacco: Never Assessed Comments Unknown Sex and Gender Information Value Date Recorded Sex Assigned at Not on file Legal Sex Female 3:19 AM BLUE CRABBER Gender Identity Not on file Sexual Orientation Not on file documented as of this encounter Plan of Treatment Not on file documented as of this encounter Visit Diagnoses Not on filedocumented in this encounter Care Teams Rail Car Painter/Sandblaster Relationship Specialty Start Date End Date Non-Staff, Physician NO ADDRESS ON FILE PCP - General 09/19/07 documented as of this encounter
--- OUTSIDE RECORDS SUMMARY | 2024-09-26 18:18 | XMS_ITS ---
Author Organization [employer] Address [address] [place] [address] [address] [place] [address] Care Team Providers Care Typing Secretary Name Role Phone Jeanmarie Bonilla MD Primary Care Provider [facility]y [facility] [phone] REASON FOR VISIT test Encounters Encounter Location Date Provider Diagnosis tribr Gastroenterology, [address] [place] [address] 03/07/2024 Susy Ge Plan Of Treatment No Information Progress Notes * Robert BUTLER MDOB: [birth year] (83 yo F)Acc No.[id number]:03/07/2024 Patient: Toby Robert abdullahi :1940 A ge:83 Y S ex:Female Address:[address] [place], [address] * true * Date: Generated for Printi ng/Faxing/eTransmitting on: 0 09/26/2024 06:18 PM TALLIER
--- OUTSIDE RECORDS SUMMARY | 2024-09-26 18:18 | XMS_ITS | Encounter Summary ---
Author Organization [employer] Address 

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
--- OUTSIDE RECORDS SUMMARY | 2024-09-26 18:18 | XMS_ITS | Encounter Summary ---
Author Organization [employer] Address 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
--- OUTSIDE RECORDS SUMMARY | 2024-09-26 18:18 | XMS_ITS | Encounter Summary ---
Author Organization [employer] Address 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
--- OUTSIDE RECORDS SUMMARY | 2024-09-26 18:18 | XMS_ITS | Clinical Summary ---
Author Organization [facility] [employer] Address [address] [facility] [place] [address] Care Team Providers Care Welder Apprentice Name Role Phone Jeanmarie Bonilla MD Primary Care Provider [phone] Jignesh Lainez MD Unavailable [phone] Misael Aponte MD Unavailable Unavailable Source Comments [facility],non-owned Affiliates and Associated Physician Practices is amultiple site organization consisting of ambulatory clinics and hospital sitesin [place], [place], [place] and [place]. This disclosure is being madepursuant to the Care Everywhere program and may not contain all information available regarding this patient. Last updated 18.[facility] Allergies Active Allergy Reactions Criticality Noted Date [...] from the original. EP- Dr. Jignesh Lainez Child Protective Investigator - Dr. Misael Aponte Problem Noted Date Diagnosed Date Pacemaker reprogramming/check 09/21/2018 Pacemaker 06/20/2018 Overview (06/20/2018): Implant SJM PPM 1272 SN: [id number] on 06/20/[address] Jignesh Lainez [facility] RV Lead 1200M/58 SN: [id number] on 06/20/[address] Jignesh Lainez Paroxysmal atrial fibrillation 04/13/2016 Palpitations SSS (sick sinus syndrome) Resolved Problems Problem Noted Date Diagnosed Date Resolved Date Dysrhythmia, cardiac 08/18/2016 017 Encounter for loop recorder check 04/27/2016 06/20/2018 Overview (04/27/2016): [facility] IL[facility] - Confirm [id number] SN: [id number] - Implanted 04/27/[address] Jignesh Lainez [...] Comments Blood Pressure 136/84 09/24/2019 11:44 AM WEAVER TIRE CORD Pulse 60 09/24/2019 11:44 AM WEAVER TIRE CORD Temperature 36.5 C (97.7 F) 06/20/2018 8:03 AM WEAVER TIRE CORD Respiratory Rate 14 06/20/2018 2:00 PM WEAVER TIRE CORD Oxygen Saturation 94% 06/20/2018 2:00 PM WEAVER TIRE CORD Inhaled Oxygen Concentration - - Weight 86.3 kg (190 lb 3.2 oz) 09/24/2019 11:44 AM WEAVER TIRE CORD Height 165.1 cm (5' 5 ) 09/24/2019 11:44 AM WEAVER TIRE CORD Body Mass Index 31.65 09/24/2019 11:44 AM WEAVER TIRE CORD Plan of Treatment Health Maintenance Due Date Last Done Comments BONE DENSITY TESTING 1940 MEDICARE AWV 12 MONTHS 1940 DTAP/TDAP/TD VACCINES (1 - Tdap) 12/28/1958 PNEUMOCOCCAL VACCINE 50+ (1 of 1 - PCV) 12/28/1989 ZOSTER VACCINE (1 of 2) 12/28/1989 Respiratory Syncytial Virus (RSV) Vaccine Pt: or over 60 yrs (1 - 1-dose 75+ series) 12/28/2014 COVID-19 VACCINE (1 - 2023- season) 2024 INFLUENZA VACCINE (#1) 2024 9, 07/04/2018, 05/09/2017, Additional history exists DEPRESSION SCREENING 08/07/2024 HEPATITIS B VACCINE Aged Out No longe r eligible based on patient's age to complete this topic HIB VACCINE Aged Out No longer eligi ble based on patient's age to complete this topic HPV VACCINE Aged Out No longer eligi ble based on patient's age to complete this topic MENINGOCOCCAL (Group B) VACCINE Aged Out No longer eligible based on patient's age to complete this topic MENINGOCOCCAL VACCINE Aged Out No elsa priscila eligible based on patient's age to complete this topic Care Teams Welder Apprentice Relationship Specialty Start Date End Date Jeanmarie Bonilla MD [address] [place] [address] PCP - General Internal Medicine 03/18/16 Jignesh Lainez MD [address] [place] [address] [place] [phone] Cardiovascular Disease 04/19/16 Misael Aponte MD [address] [place] [address] [place] [address] Cardiology 04/19/16
--- OUTSIDE RECORDS SUMMARY | 2024-09-26 18:18 | XMS_ITS ---
Author Organization [employer] Address [address] [place] [address] Dr. [address] [place] [address] Care Team Providers Care Regulatory Compliance Coordinator Name Role Phone Jeanmarie Bonilla MD Primary Care Provider UnavailMatias Busby Unavailable [phone] REASON FOR VISIT Pain in side-stomach Encounters Encounter Location Date Provider Diagnosis [facility] [address] [place] [address] Dr. Gipson [address] [place] [address] 03/29/2024 Matias Rivera Plan Of Treatment No Information Progress Notes * Robert BUTLER MDOB: [birth year] (83 yo F)Acc No.[id number]:03/29/2024 Patient: Robert Salazar :1940 A ge:83 Y S ex:Female Address:[address] [place], [address] * true * Date: Generated for Printi ng/Faxing/eTransmitting on: 0 09/26/2024 06:17 PM AXLE TURNER
--- OUTSIDE RECORDS SUMMARY | 2024-09-26 18:18 | XMS_ITS | Encounter Summary ---
Author Organization [employer] Address 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
--- OUTSIDE RECORDS SUMMARY | 2024-09-26 18:18 | XMS_ITS | Encounter Summary ---
Author Organization [employer] Address 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
--- OUTSIDE RECORDS SUMMARY | 2024-09-26 18:18 | XMS_ITS | Patient Health Record ---
Author Organization [employer] Address [address] [facility] [address] [place] [address] Care Team Providers Care Mechanical Systems Control Engineer Name Role Phone Jeanmarie Bonilla MD Primary Care Provider UnavailMatias Busby Unavailable [phone] Susy Ge Unavailable [phone] Allergies No Known Allergies Results Component Value Reference Range Notes CRP Reviewed date:02/21/2024 11:17:14 AM Interpretation: Performing Lab:[id number] Caroline [id number] Kateh Harvey MD Notes/Report: NON-FASTING NON-FASTING C-REACTIVE PROTEIN <3.0 <8.0 mg/L Hepatic Function Reviewed date:02/21/2024 11:17:15 AM Interpretation: Performing Lab:[facility]101Renetta [id number] Kathe Harvey MD Notes/Report: NON-FASTING NON-FASTING PROTEIN, TOTAL 7.2 6.1-8.1 g/dL ALBUMIN 4.4 3.6-5.1 g/dL GLOBULIN 2.8 1.9-3.7 g/dL (calc) ALBUMIN/GLOBULIN RATIO 1.6 1.0-2.5 (calc) BILIRUBIN, TOTAL 0.7 0.2-1.2 mg/dL BILIRUBIN, DIRECT 0.2 < OR = 0.2 mg/dL BILIRUBIN, INDIRECT 0.5 0.2-1.2 mg/dL (calc) ALKALINE PHOSPHATASE 56 37-153 U/L AST 13 10-35 U/L ALT 12 6-29 U/L Reason For Referral No Information Medications Medication SIG (Take, Route, Frequency, Duration) Notes Start Date End Date Status OTC/Vitamins Tylenol Arthriti s, Potassium Active amLODIPine Besylate Active Stool Softener Activ e Pantoprazole Sodium Active Eliquis Active ALPRAZolam Active Furosemide Active Carvedilol Active Pepcid Complete Acti ve Metamucil Active MiraLax Active Immunizations Vaccine Route Administration Date Status Comme nts Influenza Vaccination Unknown 05/07/2024 Administered Pneumococcal polysaccharide PPV23 Unknown 05/07/2024 Ad ministered Social History Tobacco Use: Social History Observation Description Date Details (start date - stop date) Never Smoker NA - NA Tobacco Use/Smoking Question Answer Notes Are you a nonsmoker Problems Problem Type SNOMED Code ICD Code Onset Dates Problem Status W/U Status Risk Notes Problem 46611256 Constipation (K59.00) Active confirmed Problem Acid reflux (478639585) Acid reflux (K21.9) Active confirmed Vital Signs Height 65 in 02/20/2024 Weight 174 lbs 02/20/2024 BMI 28.95 kg/m2 02/20/2024 Encounters Encounter Location Date Provider Diagnosis [facility], [address] [place] [address] 02/20/2024 Susy Harveyim Omental infarction K55.069 ; RUQ pain R10.11 ; Nausea R11.0 ; Weight loss R63.4 ; Acid reflux K21.9 and Constipation K59.00 [facility], [address] [place] [address] 02/16/2024 [facility], [address] [place] [address] 02/21/2024 [facility], [address] [place] [address] 03/06/2024 [facility], [address] [place] [address] 03/07/2024 Susy Ge [facility] [address] [place] [address] 03/29/2024 Matias Rivera [facility] [address] [place] [address] 04/01/2024 Jeanmarie Bonilla Assessments Encounter Date Diagnosis (ICD Code) Assessment Notes Treatment Notes Treatment Clinical Notes Section Notes 02/20/2024 RUQ pain (ICD-10 - R10.11) OMENTAL INFARCTION, RUQ PAIN, NAUSEA, WEIGHT LOSS: Recently diagnosed with omental infarct. Reviewed 02/[address] scan and ultrasound is not available at today's visit. Continues to experience right upper quadrant pain, nausea, 8 pound weight loss since February. Pain is intermittent and improving, 5/10 in severity and dull that worsens with exertion. Differentials include omental infarct, secondary to CHF, IBS, IBD, peptic ulcer disease, secondary to hospitalization , chronic comorbidities, and others. ACID REFLUX: Continues to experience heartburn and indigestion at night while remaining on pantoprazole 40 mg daily. Pepcid improved symptoms. Reviewed 2021 EGD report with patient. Differentials include uncontrolled GERD, hiatal hernia, nonulcerative dyspepsia, gastritis, esophagitis, and others. CONSTIPATION: Noted on 02/04 CT scan. Continues on MiraLAX and Metamucil daily with as needed use of stool softener. Experiences daily formed stools without hematochezia. 02/20/2024 Omental infarction (ICD-10 - K55.069) OMENTAL INFARCTION, RUQ PAIN, NAUSEA, WEIGHT LOSS: Recently diagnosed with omental infarct. Reviewed 02/[address] scan and ultrasound is not available at today's visit. Continues to experience right upper quadrant pain, nausea, 8 pound weight loss since February. Pain is intermittent and improving, 5/10 in severity and dull that worsens with exertion. Differentials include omental infarct, secondary to CHF, IBS, IBD, peptic ulcer disease, secondary to hospitalization , chronic comorbidities, and others. ACID REFLUX: Continues to experience heartburn and indigestion at night while remaining on pantoprazole 40 mg daily. Pepcid improved symptoms. Reviewed 2021 EGD report with patient. Differentials include uncontrolled GERD, hiatal hernia, nonulcerative dyspepsia, gastritis, esophagitis, and others. CONSTIPATION: Noted on 02/04 CT scan. Continues on MiraLAX and Metamucil daily with as needed use of stool softener. Experiences daily formed stools without hematochezia. 02/20/2024 Nausea (ICD-10 - R11.0) OMENTAL INFARCTION, RUQ PAIN, NAUSEA, WEIGHT LOSS: Recently diagnosed with omental infarct. Reviewed 02/[address] scan and ultrasound is not available at today's visit. Continues to experience right upper quadrant pain, nausea, 8 pound weight loss since February. Pain is intermittent and improving, 5/10 in severity and dull that worsens with exertion. Differentials include omental infarct, secondary to CHF, IBS, IBD, peptic ulcer disease, secondary to hospitalization , chronic comorbidities, and others. ACID REFLUX: Continues to experience heartburn and indigestion at night while remaining on pantoprazole 40 mg daily. Pepcid improved symptoms. Reviewed 2021 EGD report with patient. Differentials include uncontrolled GERD, hiatal hernia, nonulcerative dyspepsia, gastritis, esophagitis, and others. CONSTIPATION: Noted on 02/04 CT scan. Continues on MiraLAX and Metamucil daily with as needed use of stool softener. Experiences daily formed stools without hematochezia. 02/20/2024 Weight loss (ICD-10 - R63.4) OMENTAL INFARCTION, RUQ PAIN, NAUSEA, WEIGHT LOSS: Recently diagnosed with omental infarct. Reviewed 02/[address] scan and ultrasound is not available at today's visit. Continues to experience right upper quadrant pain, nausea, 8 pound weight loss since February. Pain is intermittent and improving, 5/10 in severity and dull that worsens with exertion. Differentials include omental infarct, secondary to CHF, IBS, IBD, peptic ulcer disease, secondary to hospitalization , chronic comorbidities, and others. ACID REFLUX: Continues to experience heartburn and indigestion at night while remaining on pantoprazole 40 mg daily. Pepcid improved symptoms. Reviewed 2021 EGD report with patient. Differentials include uncontrolled GERD, hiatal hernia, nonulcerative dyspepsia, gastritis, esophagitis, and others. CONSTIPATION: Noted on 02/04 CT scan. Continues on MiraLAX and Metamucil daily with as needed use of stool softener. Experiences daily formed stools without hematochezia. 02/20/2024 Acid reflux (ICD-10 - K21.9) OMENTAL INFARCTION, RUQ PAIN, NAUSEA, WEIGHT LOSS: Recently diagnosed with omental infarct. Reviewed 02/[address] scan and ultrasound is not available at today's visit. Continues to experience right upper quadrant pain, nausea, 8 pound weight loss since February. Pain is intermittent and improving, 5/10 in severity and dull that worsens with exertion. Differentials include omental infarct, secondary to CHF, IBS, IBD, peptic ulcer disease, secondary to hospitalization , chronic comorbidities, and others. ACID REFLUX: Continues to experience heartburn and indigestion at night while remaining on pantoprazole 40 mg daily. Pepcid improved symptoms. Reviewed 2021 EGD report with patient. Differentials include uncontrolled GERD, hiatal hernia, nonulcerative dyspepsia, gastritis, esophagitis, and others. CONSTIPATION: Noted on 02/04 CT scan. Continues on MiraLAX and Metamucil daily with as needed use of stool softener. Experiences daily formed stools without hematochezia. 02/20/2024 Constipation (ICD-10 - K59.00) OMENTAL INFARCTION, RUQ PAIN, NAUSEA, WEIGHT LOSS: Recently diagnosed with omental infarct. Reviewed 02/[address] scan and ultrasound is not available at today's visit. Continues to experience right upper quadrant pain, nausea, 8 pound weight loss since February. Pain is intermittent and improving, 5/10 in severity and dull that worsens with exertion. Differentials include omental infarct, secondary to CHF, IBS, IBD, peptic ulcer disease, secondary to hospitalization , chronic comorbidities, and others. ACID REFLUX: Continues to experience heartburn and indigestion at night while remaining on pantoprazole 40 mg daily. Pepcid improved symptoms. Reviewed 2021 EGD report with patient. Differentials include uncontrolled GERD, hiatal hernia, nonulcerative dyspepsia, gastritis, esophagitis, and others. CONSTIPATION: Noted on 02/04 CT scan. Continues on MiraLAX and Metamucil daily with as needed use of stool softener. Experiences daily formed stools without hematochezia. 02/20/2024 Other For my visit with Robert, recommend the followin. Reviewed most recent blood work and CT scan available at today's visit. She will sign a release form for updated CT scan and ultrasound provider review in patient's chart. 2. As she recently had EGD, I would recommend she completing x-ray upper GI, with small bowel follow-through to further investigate. 3. She will complete hepatic function and CRP that were not completed with violin mechanic. 4. Pending results of small bowel series, she may warrant consultation with surgery for possible stent placement. 5. She will continue on pantoprazole and Pepcid as prescribed. Continue antireflux diet and lifestyle modifications. Will further evaluate with small bowel series. 6. She will continue MiraLAX and Metamucil. If constipation continues, she may to trial of Motegrity, Linzess, Amitiza, or Trulance. Robert, and her daughter Dania verbalized a clear understanding of the plan and recommendations . All questions answered. If her symptoms continue or worsen, she may call our office or seek care in emergency room/urgent care. She may call our office for new GI complaints or alarm symptoms as needed. This provider spent approximately 35 minutes of face to face time, time for documentation, and discussing care/treatment options with the patient and daughter OMENTAL INFARCTION, RUQ PAIN, NAUSEA, WEIGHT LOSS: Recently diagnosed with omental infarct. Reviewed 02/[address] scan and ultrasound is not available at today's visit. Continues to experience right upper quadrant pain, nausea, 8 pound weight loss since February. Pain is intermittent and improving, 5/10 in severity and dull that worsens with exertion. Differentials include omental infarct, secondary to CHF, IBS, IBD, peptic ulcer disease, secondary to hospitalization , chronic comorbidities, and others. ACID REFLUX: Continues to experience heartburn and indigestion at night while remaining on pantoprazole 40 mg daily. Pepcid improved symptoms. Reviewed 2021 EGD report with patient. Differentials include uncontrolled GERD, hiatal hernia, nonulcerative dyspepsia, gastritis, esophagitis, and others. CONSTIPATION: Noted on 02/04 CT scan. Continues on MiraLAX and Metamucil daily with as needed use of stool softener. Experiences daily formed stools without hematochezia. Plan Of Treatment Pending Test Test Name Order Date Xray Upper GI w/ Small Bowel 02/20/2024 Insurance Providers Payer Name Payer Address Payer Phone Subscriber Number Group Number Insured Name Patient Relationship to Insured Coverage Start Date Coverage End Date Medicare E2 [address] [address] [place] [address] [id number] Robert Butler Self - patient is the insured [employer] PPO E2 [address] [place] [address] [id number] Robert Butler Self - patient is the insured Medical (General) History Medical History History ICD Code GERD Hiatal Hernia Atrial Fibrillation Congestive Heart Failure Hearing Loss Hypertension Sleep Apnea Surgical History Surgery Date(Month/Year) Endoscopy (Dr Maher) 02/2022 Colonoscopy (Outside Provider) 2021 Cholecystectomy Hernia Repair Pacemaker Placement Cataract Surgery Hysterectomy Hospitalization History Reason Date(Month/Year) [facility] 02/2024
--- OUTSIDE RECORDS SUMMARY | 2024-09-26 18:18 | XMS_ITS ---
Author Organization [employer] Address [address] [facility] [address] [place] [address] Care Team Providers Care Comb Machine Operator Name Role Phone Jeanmarie Bonilla MD Primary Care Provider Unavailabl e REASON FOR VISIT IBgard Encounters Encounter Location Date Provider Diagnosis [facility] [address] [place] [address] 04/01/2024 Jeanmarie Bonilla Plan Of Treatment No Information Progress Notes * Robert BUTLER MDOB: [birth year] (83 yo F)Acc No.[id number]:04/01/2024 Patient: Toby Robert abdullahi :1940 A ge:83 Y S ex:Female Address:[address] [place], [address] * true * Date: Generated for Printi ng/Faxing/eTransmitting on: 0 09/26/2024 06:18 PM IT NETWORK ENGINEER
--- OUTSIDE RECORDS SUMMARY | 2024-09-26 18:18 | XMS_ITS | Encounter Summary ---
Author Organization [employer] Address 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
--- OUTSIDE RECORDS SUMMARY | 2024-09-26 18:18 | XMS_ITS | Encounter Summary ---
Author Organization [employer] Address 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
--- OUTSIDE RECORDS SUMMARY | 2024-09-26 18:18 | XMS_ITS | Clinical Summary ---
Author Organization [facility] [address] [facility] Address [address] [place] [address] Care Team Providers Care Sand Operator Name Role Phone Jeanmarie Bonilla MD Primary Care Provider [phone] Jony AKINS MD, Vlad Pitt Unavailable [phone] Allergies Active Allergy Reactions Criticality Noted Date [...] l (VITAMIN D-3) 2000 unit tablet Active multivit-lightout examiner al-xozf-cxolxt tablet Take by mouth Active simethicone (GAS-X) [...] & Plan (02/01/2024 11:31 AM CDT): IPam, [facility] have personally reviewed pertinent inpatient and/or ED records, including discharge medications and Clindesk if applicable. This patient's discharge medication list has been reviewed and reconciled with her outpatient medication list and has also been reviewed with patient and/or caregiver. I have noted any changes. Omental infarction ([facility]) 01/30/2024 Assessment & Plan (02/01/2024 11:37 AM [...] WIll continue to folwo response. Paroxysmal A-fib ([facility]) 11/14/2023 Overview (11/14/2023): Stable on DOAC and will montior response. NO change and continue on eliquis. Chest pain 08/31/2023 Atrial fibrillation ([facility]) 08/31/2023 Assessment & Plan (02/01/2024 11:35 AM CDT): Compliant with Eliquis. Rate controlled. Follows with cardiology and EP. Will check BNP today. Way tomorrow. If weight not improved recommend touching base with window trimmer. She is agreeable with plan states understanding. Acute dyspnea 08/31/2023 Thyroid disorder screening 08/31/2023 Assessment & Plan (08/31/2023 12:47 PM BURNER OPERATOR): Lab Results Component Value Date TSH 2.43 08/22/2022 TSH 5.22 (H) 01/04/2022 TSH 2.18 10/20/2021 Itching 08/31/2023 Assessment & Plan (08/31/2023 12:59 PM BURNER OPERATOR): Reports itching of palms of hands and [...] use for at least 30 minutes Then [place] gel apply pea-size amount into each nostril [...] PM CDT): Reviewed neg venous doppler in [facility]. Discussed otc muscle rubs, lidocaine patches. [...] Eliquis. NSTEMI (non-ST elevated myocardial infarction) ( [facility]) 09/13/2021 Anaphylactic reaction to wasp sting 03/03/2021 [...] 10/05/2018 Pacemaker 06/20/2018 Overview (11/25/2019): Overview: Implant [facility] PPM 1272 SN: [id number] on 06/20/[address] Jignesh Lainez SJ RV Lead 1200M/58 SN: [id number] on 06/20/[address] Jignesh Lainez Assessment & Plan (01/04/2022 10:30 AM CDT): Patient with interrogation 1 week ago and no findings but was found to have low pulse while in cardiac rehab and carvedilol discontinued. Currently pacemaker appears to be working well. Await Cardiology evaluation. 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 No syncope/near-syncope. Assessment & Plan (08/31/2023 12:49 PM BURNER OPERATOR): Stable. Patient denies any palpitations, awareness of [...] outpatient. Assessment & Plan (07/20/2021 3:24 PM BURNER OPERATOR): Trial protonix 40 every morning and if [...] repsonse. Assessment & Plan (08/31/2023 12:50 PM BURNER OPERATOR): Blood pressure today is well controlled, 138/76. [...] (02/05/2018): Overview: [employer] IL[employer] - Confirm [id number] SN: [id number] - Implanted 04/27/[address] Jignesh Lainez Overview: [employer] ILR - Confirm [id number] SN: [id number] - Implanted 04/27/[address] Jignesh Lainez Paroxysmal atrial fibrillation ([facility]) 04/13/2016 11/14/2023 Assessment & Plan (08/31/2023 12:48 PM BURNER OPERATOR): Rate controlled continue carvedilol 6.25 mg b.i.d. and Eliquis. Following with EP and Cardiology Assessment & Plan (05/23/2022 9:58 AM CDT): Dr. Borges cardiology at [facility]. Continues eliquis 5 mg twice daily. Assessment [...] 2021(Deferred: Patient Refused),01/27/2021(Deferred: Patient Refused),11/27/2020(Deferred: Patient Refused) Surgical History Surgery Date Site/Laterality Comments TOTAL ABDOMINAL HYSTERECTOMY Hysterectomy, total CHOLECYSTECTOMY Cholecystectomy FOOT SURGERY R foot surgery OTHER SURGICAL HISTORY loop recorder INSERT / REPLACE / REMOVE PACEMAKER 06/20/2018 [facility] MOLE REMOVAL 04/07/2020 N/A HERNIA REPAIR 04/07/2021 Medical History Medical History Date Comments Hypertension Hypertension Anxiety disorder Anxiety Gastroesophageal reflux disease GERD Arthritis A-fib ([facility]) ([facility]) Hiatal hernia Diaphragmatic hernia 11/25/2019 Omental infarction ([facility]) ([facility]) 01/30/2024 Family History Medical History Relation Name Comments Heart disease Brother Cardiovascular disease; Diabetes type II Father Diabetes -T ype 2; Kidney disease Father Renal disease ; Cancer Mother Cancer, unknown ; Hypertension Mother Hypertension; Osteoarthritis Mother Osteoarthriti s; Hypertension Sister Hypertension; Relation Name Status Comments Brother Father (Age 54) Mother Sister Social History Tobacco Use Types Packs/Day Years [...] often do you attend chur ch or hoahaoism services? Never 01/06/2022 Do you belong to any clubs o r organizations such as lutheran groups, unions, fraternal or athletic groups, or [...] place to sleep or slept in a skilled nursing (including now)? No 01/06/2022 Personal Safety Answer Date Recorded Have you ever been in or are you currently in a harmful physical or emotional relationship or is someone making you feel afraid or unsafe? Denies 01/30/2024 Comments No Sex and Gender Information Value Date Recorded Sex Assigned at Not on file Legal Sex Female 9:10 AM BURNER OPERATOR Gender Identity Female 05/10/2024 1:38 PM CDT Sexual Orientation Not on file Obstetrics History Last Filed Vital Signs Vital Sign Reading [...] 05/22/2024 9:27 AM CDT Plan of Treatment Health Maintenance Due Date Last Done Comments DTaP/Tdap/Td Vaccine (1 - Tdap) 12/28/1950 Hepatitis B Screening 12/28/1957 Zoster Vaccine (1 of 2) 12/28/1989 Osteoporosis Screening-Bone Density Scan 02/18/2023 02/18/2021 Covid-19 Vaccine (4 - 2023-2 5 season) 2024 06/12/2021, 10/20/2020, 10/15/2020 Depression Screening 05/22/2025 05/22/2024, 02/23/2024, 11/14/2023, Additional history exists Fall Risk Assessment 05/22/2025 05/22/2024, 02/23/2024, 02/01/2024, Additional history exists Well Visit 65+ 05/22/2025 05/22/2024, 01/2023, 05/23/2022, Additional history exists Pneumococcal vaccine 65+ Completed 05/23/2022 Influenza Vaccine Completed 05/22/2024, , 05/23/2022, Additional history exists Medical Devices Implanted Type Area Spring Former Device Identifier Shelf Expiration Date Model / Serial / Lot Pacemaker Pacemaker Left: Chest [employer] [id number] Angio-Seal Evolution 6fr .035in Guidewire Bypass Tube Suture - [id number] Implanted:Qty : 1 on 09/14/2021 by Wong Tony MD at [facility] [employer] 03/06/2022 [id number] / / [id number] Procedures Procedure Name Priority Date/Time Associated Diagnosis [...] FOR STUDY: Post-menopausal female, screening for osteoporosis. Spring Former/Model: [employer] Discovery SL (S/N [id number]) CLINICAL INFORMATION: Current height: 65 inches Maximum [...] by Natalio Bowles M.D. AB: Report ID: [id number] Reading Location: [id number] Procedure Note Natalio Bowles MD - 02/18/2021 EXAM DESCRIPTION: DEXA AXIAL SKELETON BONE DENSITY 1 OR MORE SITES REASON FOR STUDY: Post-menopausal female, screening for osteoporosis. Spring Former/Model: [place] (S/N [id number]) CLINICAL INFORMATION: Current height: 65 inches Maximum [...] Natalio Bowles M.D. AB: AB Report ID: [id number] Reading Location: [id number] Pam Child [facility] IMG DXA PROCEDURES Final R esult from Last 3 Months or Most Recently Relevant to Health [place] [address] MEDICARE [facility] MEDICARE [facility] TRADITIONAL Member Subscriber Plan / Payer ( fective 2012-Present) Name:EzequielbenydanaGeovanniAzul M Relation to Subscriber:Self Name:CARRIEAZUL M Payer ID:[id number] (NAIC) Type:[employer] Address: [address] MEDICARE BLUE TRADITIONAL OOS Advance Directives For more information, please contact: [phone] * LIMITED - No CPR (Latest Code [...] 11:37 PM 03/03/2021 9:07 PM Care Teams Sand Operator Relationship Specialty Start Date End Date Jeanmarie Bonilla MD [address] [place] [address] PCP - General 11/08/16 Vlad Borges III, MD [address] [place] [address] Consulting Physician Cardiology 01/04/22
--- OUTSIDE RECORDS SUMMARY | 2024-09-26 18:18 | XMS_ITS | Patient Health Summary ---
Author Organization [facility] Address [address] [place] [address] Care Team Providers Care Library Technical Assistant Name Role Phone Jeanmarie Bonilla MD Primary Care Provider [phone] Jignesh Lainez MD Unavailable [phone] Misael Aponte MD Unavailable Unavailable Note from [facility],non-owned Affiliates and Associated Physician Practices is amultiple site organization consisting of ambulatory clinics and hospital sitesin [place], [place] and [place]. This disclosure is being madepursuant to the Care Everywhere program and may not contain all information available regarding this patient. Last updated 18.[facility] Allergies * Clonidine * Codeine(Nausea and/or Vomiting) * Galantamine(Nausea and/or Vomiting) Medications * Be aware that medications may not be up to date on this document. Alwaysverify current medications with the patient. * OMEPRAZOLE PO Take 20 mg by mouth once daily as needed * ALPRAZOLAM PO Take 0.5 mg by mouth once daily as needed * ELIQUIS 5 MG tablet(Started 01/26/2017) TAKE 1 TABLET TWICE A DAY * amLODIPine (NORVASC) 5 MG tablet(Started 01/23/2018) Take 5 mg by mouth once daily * metoprolol tartrate (LOPRESSOR) 25 MG tablet(Started 04/19/2018) Take 25 mg by mouth 2 times daily * hydroxychloroquine (PLAQUENIL) 200 MG tablet Take 1 tablet by mouth 2 times daily * hydroCHLOROthiazide (HYDRODIURIL) 25 MG tablet Take 25 mg by mouth once daily * potassium chloride ER (KLOR-CON) 20 MEQ tablet Take 20 mEq by mouth once daily * ibuprofen (MOTRIN) 800 MG tablet Take 800 mg by mouth 2 times daily as needed Active Problems Problem Noted Date Diagnosed Date Pacemaker reprogramming/check 09/21/2018 Pacemaker 06/20/2018 Paroxysmal atrial fibrillation 04/13/2016 Palpitations SSS (sick sinus syndrome) Resolved Problems Problem Noted Date Diagnosed Date Resolved Date Dysrhythmia, cardiac 08/18/2016 017 Encounter for loop recorder check 04/27/2016 06/20/2018 Social History Tobacco Use Types Packs/Day Years [...] Comments Blood Pressure 136/84 09/24/2019 11:44 AM ASSOCIATE PROFESSOR OF ARCHAEOLOGY Pulse 60 09/24/2019 11:44 AM ASSOCIATE PROFESSOR OF ARCHAEOLOGY Temperature 36.5 C (97.7 F) 06/20/2018 8:03 AM ASSOCIATE PROFESSOR OF ARCHAEOLOGY Respiratory Rate 14 06/20/2018 2:00 PM ASSOCIATE PROFESSOR OF ARCHAEOLOGY Oxygen Saturation 94% 06/20/2018 2:00 PM ASSOCIATE PROFESSOR OF ARCHAEOLOGY Inhaled Oxygen Concentration - - Weight 86.3 kg (190 lb 3.2 oz) 09/24/2019 11:44 AM ASSOCIATE PROFESSOR OF ARCHAEOLOGY Height 165.1 cm (5' 5 ) 09/24/2019 11:44 AM ASSOCIATE PROFESSOR OF ARCHAEOLOGY Body Mass Index 31.65 09/24/2019 11:44 AM ASSOCIATE PROFESSOR OF ARCHAEOLOGY Procedures * PACEMAKER CLINIC CHECK(Performed 07/14/2020) Performed for SSS (sick sinus syndrome) (HCC), Paroxysmal atrial fibrillation (HCC), Pacemaker * PACEMAKER CLINIC CHECK(Performed 04/03/2020) Performed for SSS (sick sinus syndrome) (HCC), Pacemaker * DERMATOPATHOLOGY(Performed 03/23/2020) * PACEMAKER CLINIC CHECK(Performed 12/25/2019) Performed for SSS (sick sinus syndrome) (HCC), Pacemaker * ECHO COMPLETE(Performed 09/25/2019) * PACEMAKER CLINIC CHECK(Performed 09/24/2019) Performed for SSS (sick sinus syndrome) (HCC), Pacemaker reprogramming/check * EKG 12-LEAD(Performed 09/24/2019) Performed for Chronic atrial fibrillation (HCC), Paroxysmal atrial fibrillation (HCC) * PACEMAKER CLINIC CHECK(Performed 07/26/2019) Performed for SSS (sick sinus syndrome) (HCC), Pacemaker * PACEMAKER CLINIC CHECK(Performed 04/05/2019) Performed for SSS (sick sinus syndrome) (HCC), Pacemaker * PACEMAKER CLINIC CHECK(Performed 12/21/2018) Performed for SSS (sick sinus syndrome) (HCC), Pacemaker * ECHOCARDIOGRAM TRANSTHORACIC(Performed 10/02/2018) * PACEMAKER CLINIC CHECK(Performed 09/21/2018) Performed for SSS (sick sinus syndrome) (HCC), Pacemaker reprogramming/check * EKG 12-LEAD(Performed 09/21/2018) Performed for Paroxysmal atrial fibrillation (HCC), SSS (sick sinus syndrome) (HCC), Palpitations, Pacemaker * PACEMAKER CLINIC CHECK(Performed 06/21/2018) Performed for SSS (sick sinus syndrome) (HCC), Pacemaker * PACEMAKER IMPLANT(Performed 06/20/2018) Performed for Paroxysmal atrial fibrillation (HCC), Encounter for loop recorder check, SSS (sick sinus syndrome) (HCC) * BASIC METABOLIC PANEL (CALCIUM TOTAL)(Performed 06/15/2018) Performed for Paroxysmal atrial fibrillation (HCC), Encounter for loop recorder check, SSS (sick sinus syndrome) (HCC) * CBC W AUTO DIFFERENTIAL(Performed 06/15/2018) Performed for Paroxysmal atrial fibrillation (HCC), Encounter for loop recorder check, SSS (sick sinus syndrome) (HCC) * ILR CLINIC CHECK(Performed 06/11/2018) Performed for Paroxysmal atrial fibrillation (HCC), Encounter for loop recorder check * ILR CLINIC CHECK(Performed 03/09/2018) Performed for Paroxysmal atrial fibrillation (HCC), Encounter for loop recorder check * EKG 12-LEAD(Performed 08/31/2017) Performed for Paroxysmal atrial fibrillation (HCC), SSS (sick sinus syndrome) (HCC), Palpitations * ILR CLINIC CHECK(Performed 08/31/2017) Performed for Paroxysmal atrial fibrillation (HCC), Encounter for loop recorder check * ILR CLINIC CHECK(Performed 06/20/2017) Performed for Paroxysmal atrial fibrillation (HCC), Encounter for loop recorder check * ILR CLINIC CHECK(Performed 02/27/2017) Performed for Palpitations, Implantable Loop Recorder * ILR CLINIC CHECK(Performed 11/25/2016) Performed for Paroxysmal atrial fibrillation (HCC), Implantable Loop Recorder * EKG 12-LEAD(Performed 08/16/2016) Performed for Paroxysmal atrial fibrillation (HCC), Implantable Loop Recorder * ILR CLINIC CHECK(Performed 08/16/2016) Performed for Paroxysmal atrial fibrillation (HCC), Implantable Loop Recorder * ILR CLINIC CHECK(Performed 06/14/2016) Performed for Paroxysmal atrial fibrillation (HCC), Implantable Loop Recorder * ILR CLINIC CHECK(Performed 05/05/2016) Performed for Paroxysmal atrial fibrillation (HCC), Implantable Loop Recorder * LOOP RECORDER INSERTION(Performed 04/27/2016) Performed for Atrial fibrillation, unspecified type (HCC) * BASIC METABOLIC PANEL (CALCIUM TOTAL)(Performed 04/21/2016) Performed for Paroxysmal atrial fibrillation (HCC) * CBC W AUTO DIFFERENTIAL(Performed 04/21/2016) Performed for Paroxysmal atrial fibrillation (HCC) * EKG 12-LEAD(Performed 04/19/2016) Performed for Atrial fibrillation, unspecified type (HCC) * HOLTER MONITOR(Performed 03/03/2016) * EKG(Performed 02/01/2016) * LAB MISC TEST(Performed 12/01/2015) * EKG(Performed 08/19/2015) * DERMATOPATHOLOGY(Performed 04/03/2014) * ECHO COMPLETE(Performed 06/12/2012) Results * PACEMAKER CLINIC CHECK (07/14/2020 12:47 PM ASSOCIATE PROFESSOR OF ARCHAEOLOGY) Only the most recent of9 resultswithin the time period is included. Narrative MalcolmDarien montenegrown - 07/14/2020 12:47 PM ASSOCIATE PROFESSOR OF ARCHAEOLOGY Jose Fowler 07/16/2020 12:48 PM See scan for parameters, rate histograms, and EGMs. Procedure Note Jose Fowler - 07/16/2020 12:47 PM CST See scan for parameters, rate histograms, and EGMs. Jignesh Lainez MD CARDIAC SERVICES ORD ERABLES * DERMATOPATHOLOGY (03/23/2020 12:00 AM CDT) Only the most recent of2 resultswithin the time period is included. Case Report Dermatopathology Report Case: [id number] Authorizing Provider: Charlie Mariano MD Collected: 03/23/2020 12:00 AM Ordering Location: [facility] DermPath Lab Received: 03/24/2020 12:36 PM [...] specimen consists of a shave biopsy measuring [id number]. Jar 0. 0 2:04 PM CDT DERMATOPATHOLOGY [...] characteristic determined by the Dermatopathology Laboratory at [facility], directed by Dr. Jennifer Obrien. These tests need not be, and therefore are not, approved by the [place] Food and Drug Administration. The tests are used for clinical purposes. Billing Codes Specimen Charges Stain Charges 57311 1 0 2:04 PM CDT DERMATOPATHOLOGY LABORATORY Embedded Images 0 2:04 PM CDT DERMATOPATHOLOGY LABORATORY Pathology/Cytolog y TISSUE SPECIMEN FROM SKIN / Unknown 03/23/2020 03/24/2020 12:36 PM CDT Charlie Mariano MD LAB - PATHOLOGY/CYTO LOGY ORDERABLES DERMATOPATHOLOGY LABORATORY [facility] - Department of Dermatology [place]/[address] [phone] * ECHO COMPLETE (09/25/2019) Only the most recent of2 resultswithin the time period is included. Ha Provider ECHO ORDERABLES * EKG 12-LEAD (09/24/2019 11:16 AM ASSOCIATE PROFESSOR OF ARCHAEOLOGY) Only the most recent of5 resultswithin the time period is included. Narrative LeslieSaima cortez - 09/24/2019 11:16 AM ASSOCIATE PROFESSOR OF ARCHAEOLOGY Kayla Green 09/24/2019 11:17 AM See Scan Procedure Note Kayla Green - 09/24/2019 11:16 AM CST See Scan Jignesh Lainez MD ECG ORDERABLES * ECHOCARDIOGRAM TRANSTHORACIC (10/02/2018) Jignesh Lainez MD ECHO ORDERABLES * PACEMAKER IMPLANT (06/20/2018 5:15 PM ASSOCIATE PROFESSOR OF ARCHAEOLOGY) Narrative Shellie Landaverde RN - 06/20/2018 5:15 PM ASSOCIATE PROFESSOR OF ARCHAEOLOGY Shellie Landaverde RN 06/20/2018 5:15 PM See Scan Jignesh Lainez MD CARDIAC SERVICES ORD ERABLES * CBC WITH DIFFERENTIAL (06/15/2018 9:30 AM ASSOCIATE PROFESSOR OF ARCHAEOLOGY) Only the most recent of2 resultswithin the time period is included. White Blood Cell Count 7.3 3.8 - 10.8 Thousand/u L [facility] RBC 4.79 3.80 - 5.10 Million/uL [facility] Hemoglobin 14.5 11.7 - 15.5 g/dL [facility] Hematocrit 42.8 35.0 - 45.0 % [facility] MCV 89.4 80.0 - 100.0 fL [facility] MCH 30.3 27.0 - 33.0 pg [facility] MCHC 33.9 32.0 - 36.0 g/dL [facility] RDW 13.2 11.0 - 15.0 % [facility] Platelet Count 330 140 - 400 Thousand/u L [facility] MPV 11.3 7.5 - 12.5 fL [facility] Neutrophil Absolute 4818 1500 - 7800 cells/uL [facility] Lymphocytes Absolute 1445 850 - 3900 cells/uL [facility] Absolute Monocytes 832 200 - 950 cells/uL [facility] Eosinophils Absolute 131 15 - 500 cells/uL [facility] Basophils Absolute 73 0 - 200 cells/uL [facility] Granulocytes % 66 % [facility] Lymphocytes % 19.8 % [facility] Monocytes % 11.4 % [facility] Eosinophils % 1.8 % [facility] Basophils % 1.0 % [facility] Comment: Test Performed at: [facility] [id number] [place] [address] SYDNEY BOSS DO,MPH Blood BLOOD SPECIMEN / Unknown 06/15/2018 9:30 AM ASSOCIATE PROFESSOR OF ARCHAEOLOGY 06/15/2018 9:31 AM ASSOCIATE PROFESSOR OF ARCHAEOLOGY Jignesh Lainez MD LAB - HEMATOLOGY MICHAEL GAMBOA [facility] [address] [place] [address] * BASIC METABOLIC PANEL (CALCIUM TOTAL) (06/15/2018 9:30 AM ASSOCIATE PROFESSOR OF ARCHAEOLOGY) Only the most recent of2 resultswithin the time period is included. Glucose 82 65 - 99 mg/dL [facility] Comment: Fasting reference interval BUN 17 7 - 25 mg/dL [facility] Creatinine 0.79 0.60 - 0.93 mg/dL [facility] Comment: For patients >49 years of age, the reference limit for Creatinine is approximately 13% higher for people identified as -Iraqi. eGFR by MDRD 72 > OR = 60 mL/min/1 .73m2 [facility] eGFR by MDRD 83 > OR = 60 mL/min/1 .73m2 [facility] BUN/Creatinine Ratio NOT APPLICABLE 6 - 22 (calc) [facility] Sodium 135 135 - 146 mmol/L [facility] Potassium 3.7 3.5 - 5.3 mmol/L [facility] Chloride 98 98 - 110 mmol/L [facility] CO2 26 20 - 32 mmol/L [facility] Calcium 9.6 8.6 - 10.4 mg/dL [facility] Comment: Test Performed at: [facility] [id number] [place] [address] SYDNEY BOSS DO,MPH Blood BLOOD SPECIMEN / Unknown 06/15/2018 9:30 AM ASSOCIATE PROFESSOR OF ARCHAEOLOGY 06/15/2018 9:31 AM ASSOCIATE PROFESSOR OF ARCHAEOLOGY Jignesh Lainez MD LAB - CHEMISTRY HORACE SHIELDS [facility] [address] [place] [address] * ILR CLINIC CHECK (06/11/2018 12:54 PM ASSOCIATE PROFESSOR OF ARCHAEOLOGY) Only the most recent of9 resultswithin the time period is included. Narrative Jignesh Lainez MD - 06/11/2018 12:54 PM ASSOCIATE PROFESSOR OF ARCHAEOLOGY Jignesh Lainez MD 06/11/2018 12:54 PM See scan for Parameters, Rate histograms, and EGMs. EGMs reviewed. 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 I phoned pt, she's typically awake at the early but denies syncope. I recommended PPM. She acknowledged. Reviewed risk/benefits. She'll think about it and let us know. SP. Jignesh Lainez MD CARDIAC SERVICES ORD ERABLES * LOOP RECORDER INSERTION (04/27/2016) Jignesh Lainez MD CARDIAC SERVICES ORD ERABLES * HOLTER MONITOR (03/03/2016) Historical Provider CARDIAC SERVICES ORDERABLES * EKG (02/01/2016) Only the most recent of2 resultswithin the time period is included. Historical Provider SCANNING ONLY * LAB MISC TEST (12/01/2015) Other (qualifier value) BLOOD SPECIMEN / Unknown Historical Provider LAB SEND OUT Care Teams Library Technical Assistant Relationship Specialty Start Date End Date [place] [address] PCP - General Internal Medicine 03/18/16 Jignesh Lainez MD [address] [place], [place] [address]MI[place] DIAZ [address] Cardiovascular Disease 04/19/16 Misael Aponte MD [address] [place] [address] [place] [address] [place], MILL[place] [address] Cardiology 04/19/16
[2024-09-26 18:20] VITALS: BP 176/76; PULSE 74; RESP 20; O2SAT 98
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
--- NOTE | 2024-09-26 18:55 | ED_ITS ---
HPI - Chest Pain General Chief Complaint: Chest Pain Stated Complaint: HIGH BP,CHEST PAIN Source: patient Mode of arrival: ambulatory Limitations: no limitations History of Present Illness HPI narrative: 83-year-old female with a history of atrial fibrillation, hypertension, CHF, and [place] presented for complaint elevated blood pressure reading and chest pain today. States at 3:00 p.m. she noticed eye floaters which she has had in the past and is diagnosed with island migraines. She says usually she takes Xanax denies down but this time did not improve her symptoms. She checked her blood pressure at 1600 and says it read 207/135. States she felt pain in the right chest, nausea, and felt like she needed to have a BM. Pt took amlodipine which she was told to take PRN as of 09/07, Also took the second half of carvedilol (6.25mg). States her BP meds have been adjusted over the past 3 weeks. She recently started spironolactone and says she had a 5lb weight loss in 24 hours. On arrival she denies palpitations, dizziness, chest pain, nausea, shortness of breath. Scheduled for right heart cath next week. 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. Related Data Home Medications ?Medication ?Instructions ?Recorded ?Confirmed ?Last Taken ?Type alprazolam 0.5 mg tablet 0.5 mg PO TID 10/05/21 08/30/23 Unknown History amlodipine 2.5 mg tablet 2.5 mg PO DAILY 10/05/21 08/30/23 Unknown History apixaban 5 mg tablet (Eliquis) 5 mg PO BID 10/05/21 08/30/23 Unknown History carvedilol 6.25 mg tablet 6.25 mg PO BID 10/05/21 08/30/23 Unknown History pantoprazole 40 mg tablet,delayed 40 mg PO QAM 10/05/21 08/30/23 Unknown History release potassium chloride 20 mEq 20 meq PO DAILY 10/05/21 08/30/23 Unknown History tablet,extended release(part/cryst) (Klor-Con M) furosemide 20 mg tablet 20 mg PO DIRECTED 09/02/22 08/30/23 Unknown History hydrochlorothiazide 25 mg tablet 25 mg PO DAILY 09/02/22 08/30/23 Unknown History Allergies Allergy/AdvReac Type Severity Reaction Status Date / Time codeine AdvReac Mild Nausea and Verified 08/30/23 19:59 Vomiting gabapentin AdvReac Mild Nausea and Verified 08/30/23 19:59 Vomiting Review of Systems Review of Systems: CONSTITUTIONAL: Denies body aches, fever, chills, or sweats. EYES: Denies visual changes, redness, or discharge. ENT: Denies rhinorrhea, congestion, sore throat, or otalgia. CARDIOVASCULAR: reports chest pain, denies palpitations, or edema. RESPIRATORY: Denies cough reports dyspnea with exertion GASTROINTESTINAL: Denies abdominal pain, vomiting, or diarrhea. reports nausea MUSCULOSKELETAL: Denies back pain, joint pain, or myalgia. NEUROLOGIC: Denies headache, numbness, tingling, or weakness. PSYCH: reports anxiety. All systems reviewed & are unremarkable except as noted in HPI and below PMFSH Past Medical History Medical History (Updated 09/26/24 @ 19:39 by Danna Matthews APRN) CHF (congestive heart failure) Hypertension Atrial fibrillation Myocardial infarction Family History Family History Mother Family history of coronary artery disease, Onset Age: 80 Family history of premature coronary heart disease Family history of elevated blood lipids Father Family history of kidney disease, Onset Age: 50 Family history of diabetes mellitus in first degree relative Patient's father is Hypertension Diabetes mellitus Grandparent Family history of lymphoma Sibling Family history of coronary artery disease Family history of elevated blood lipids Family history of premature coronary heart disease Pacemaker Social History Social History Smoking status: Never smoker Alcohol intake: current Comments At time of signature, I have reviewed and agree with nursing past medical, surgical, social and family history unless otherwise noted. Please see nursing chart for further information. There is no relevant family history pertinent to the presenting complaint Exam Narrative: GENERAL: Well-appearing, well-nourished, and in no acute distress. EYES: EOMI. No redness or drainage. Conjunctivae normal. ENT: Mucous membranes pink and moist. CHEST: No respiratory distress. Clear to auscultation. HEART: Heart rate irregular Normal peripheral pulses. ABDOMEN: Soft, nontender, nondistended, normal active bowel sounds. EXTREMITIES: Normal range of motion. Trace BLE edema. SKIN: Warm, dry, Capillary refill normal. Normal skin turgor. NEURO: No focal deficits. Alert and oriented x3. Gait steady. PSYCH: Appears anxious Course Course Emergency Course: Patient is aware of diagnosis, understands and agrees to treatment plan. Anticipatory guidance given. Patient agrees to follow-up as directed and is aware of reasons to seek care at the emergency department. Portions of this record may have been created with voice recognition software Level of Care: Express Care Visit Vital Signs Vital signs: Vital Signs Pulse Rate 74 09/26/24 18:20 Respiratory Rate 20 09/26/24 18:20 Blood Pressure 176/76 H 09/26/24 18:20 Pulse Oximetry 98 09/26/24 18:20 Oxygen Delivery Room Air 09/26/24 18:20 Pulse Rate 60 09/26/24 18:58 Respiratory Rate 16 09/26/24 18:58 Blood Pressure 149/75 H 09/26/24 18:58 Pulse Oximetry 96 09/26/24 18:58 Oxygen Delivery Room Air 09/26/24 18:58 MDM - Chest Pain MDM Narrative Medical decision making narrative: Pt presented with c/o elevated bp, chest pain, sob with exertion and nausea today. Bp rechecked 146/90, currently without chest pain, nausea, dizziness, or heart racing. EKG shows afib. Advised ER transfer for further evaluation. Declines ER at this time. States she will contact her PCP in the morning. The patient is, AA&Ox3. The patient has demonstrated concrete thinking/reasoning, has maintained an customer service dispatcher/reasonable conversation, appears to have intact insight/judgment/reason and therefore has capacity to make decisions. Given the patients presentation, we communicated our concern for her symptoms in laymans terms. The patient verbalized an understanding. The patient is aware the evaluation is incomplete & many troublesome conditions have not been r/o. We have discussed the need for further ED workup. We have discussed the range of possible dx, potential testing & treatment options. Our dis cussions included the potential outcomes of leaving AMA, including worsening of their condition, becoming permanently disabled/in pain/critically ill, or . Despite these efforts, we were unable to convince the pt to go to the ER. We have attempted to offer tx/rx/guidance for any dangerous conditions which are most likely and/or dangerous. We have answered all questions and have implored the patient to go to ER [facility] to complete the w/u. A staff member witnessed the patient consenting to AMA. Pt is accompanied by dtr. Differential Diagnosis Differential diagnosis: Likely other (STEMI, AAA, PE, pneumothorax, cardiac tamponade, esophageal rupture, pneumonia, GERD, musculoskeletal pain, endocarditis, pericarditis, URI, bronchitis, anxiety, drug use) ECG Data EKG #1: Attestation: I personally reviewed and interpreted this ECG as follows: ( Atrial fibrillation rate 65 QRS 101 QT/QTC 390/402) ECG completion date: 09/26/24 ECG completion time: 18:25 Prior ECG tracings: available for review EKG Interpretation: atrial fibrillation Discharge Plan Discharge Clinical Impression: Hypertension Qualifiers: Hypertension type: unspecified Qualified Code(s): I10 - Essential (primary) hypertension Patient Disposition: Left Against Medical Advice Condition: Stable Patient Language: Slovenian Prescriptions: No Action hydrochlorothiazide 25 mg tablet 25 mg PO DAILY furosemide 20 mg tablet 20 mg PO DIRECTED Rx Instructions: MONDAY AND MONDAY carvedilol 6.25 mg Tablet 6.25 mg PO BID amlodipine 2.5 mg Tablet 2.5 mg PO DAILY alprazolam 0.5 mg Tablet 0.5 mg PO TID potassium chloride [Klor-Con M20] 20 mEq Tablet,Er Particles/Crystals 20 meq PO DAILY pantoprazole 40 mg Tablet,Delayed Release (Dr/Ec) 40 mg PO QAM Eliquis 5 mg Tablet 5 mg PO BID Follow-up/Referrals: Harms,Jeanmarie Cummings M.D. [Primary Care Provider] - Time of Disposition: 19:15
[2024-09-26 18:58] VITALS: BP 149/75; PULSE 60; RESP 16; O2SAT 96
--- NOTE | 2024-09-26 18:58 | ECG_ITS ---
Test Date: 2024-09-26 18:25:51 Measurements Intervals [place] Rate: 65 P: 0 AR: 0 QRS: 95 QRSD: 101 T: 71 QT: 390 QTc: 408 Interpretive Statements ATRIAL FIBRILLATION RIGHT AXIS DEVIATION BORDERLINE ST-T WAVE ABNORMALITY- ANTEROLATERAL LEADS BASELINE ARTIFACT- II, III, AVF ABNORMAL ECG No previous ECG available for comparison Electronically Signed On 09-26-2024 19:54:35 EHS TEACHER by Keagan Bray D.O.
== END 2024-09-26 19:17 | disposition left against medical advice (07) ==
LOC: EXPBETH 18:22
PROVIDERS: Emergency Provider Nurse Practitioner Family; PCP Family Medicine
DX: I10 Essential (primary) hypertension (principal); I48.91 Unspecified atrial fibrillation; I50.9 Heart failure, unspecified; I25.2 Old myocardial infarction; Z79.01 Long term (current) use of anticoagulants
CPT/HCPCS: 93005; 99213; G0463